=== PATIENT | male | born 1955 | race Native Hawaiian/Other Pacific Islander ===

== ENCOUNTER 2017-10-27 15:30 | Inpatient (IN) | payer OTHER, MEDICARE ==
[2017-10-27 15:42] VITALS: BMI 22.1
[2017-10-27] MEDS ORDERED: Enoxaparin 40 mg Syringe SC STA (16:33)
[2017-10-27] MEDS ORDERED: Enoxaparin 80 mg Syringe ONE (16:53)
[2017-10-27 17:16] LABS: BASO # 0.1 K/uL (0.0-0.2); BASO % 1.2 % (0.0-2.0); EOS # 1.1 K/uL (0.0-0.7); EOS % 12.4 % (0.0-4.0); HEMOGLOBIN 15.4 g/dL (12.0-18.0); LYMPH # 2.1 K/uL (1.0-4.3); LYMPH % 22.9 % (20.0-40.0); MEAN CELL VOLUME 82.1 fL (80.0-94.0); MEAN CORPUSCULAR HEMOGLOBIN 27.7 pg (27.0-31.0); MEAN CORPUSCULAR HGB CONC 33.7 g/dL (33.0-37.0); MEAN PLATELET VOLUME 8.8 fL (7.2-11.7); MONO # 0.8 K/uL (0.0-0.8); MONO % 8.4 % (0.0-10.0); NEUT % 55.1 % (50.0-75.0); NRBC % 0.1 % (0.0-2.0); RBC 5.57 Mil/uL (4.40-5.90); RED CELL DISTRIBUTION WIDTH 13.6 % (11.5-14.5)
[2017-10-27 17:31] LABS: ALBUMIN 3.8 g/dL (3.5-5.0); ALT/SGPT 15 U/L (21-72); AST/SGOT 28 U/L (17-59); BLOOD UREA NITROGEN 9 mg/dL (9-20); CALCIUM 9.6 mg/dl (8.6-10.4); GFR AFRICAN-AMERICAN > 60; GFR NON-AFRICAN AMERICAN > 60
[2017-10-27 17:40] LABS: INR 1.1; PROTHROMBIN TIME 12.9 SECONDS (9.7-12.2)
[2017-10-27 17:41] LABS: B-TYPE NATRIURETIC PEPTIDE 63.9 pg/mL (0-900)
--- NOTE | 2017-10-27 17:51 | C.PDOC ---
History Of Present Illness 62 y/o male presents to the ED, referred by Dr. Ramos Willingham for right lower leg swelling for the past week, suspicious for DVT. Denies recent travel or trauma. No history of DVT. Patient is ambulatory. Denies associated chest pain, SOB, dizziness, headache, or nausea. Time Seen by Provider: 10/27/17 16:29 Chief Complaint (Nursing): Lower Extremity Problem/Injury History Per: Patient History/Exam Limitations: no limitations Onset/Duration Of Symptoms: Days Current Symptoms Are (Timing): Still Present Past Medical History Reviewed: Historical Data, Nursing Documentation, Vital Signs Vital Signs: Last Vital Signs Temp 98.1 F 10/27/17 15:42 Pulse 75 10/27/17 18:22 Resp 16 10/27/17 18:22 BP 137/77 10/27/17 18:22 Pulse Ox 97 10/27/17 18:22 - Medical History PMH: CVA, Diabetes, HTN Surgical History: No Surg Hx Family History: States: No Known Family Hx - Social History Hx Tobacco Use: No Hx Alcohol Use: No Hx Substance Use: No - Immunization History Hx Tetanus Toxoid Vaccination: No Hx Influenza Vaccination: No Hx Pneumococcal Vaccination: No Review Of Systems Except As Marked, All Systems Reviewed And Found Negative. Constitutional: Negative for: Fever Cardiovascular: Negative for: Chest Pain Respiratory: Negative for: Shortness of Breath Musculoskeletal: Positive for: Other (R lower leg pain and swelling) Neurological: Negative for: Weakness, Numbness, Headache Physical Exam - Physical Exam Appears: Non-toxic, No Acute Distress Skin: Warm, Dry Head: Atraumatic, Normacephalic Eye(s): bilateral: Normal Inspection, PERRL, EOMI Neck: Normal ROM, Supple Chest: Symmetrical Cardiovascular: Rhythm Regular, No Murmur Respiratory: Normal Breath Sounds, No Rales, No Rhonchi, No Wheezing Gastrointestinal/Abdominal: Soft, No Tenderness, No Distention Extremity: Normal ROM, No Capillary Refill, Swelling (Edematous right leg below the knee), Other (Negative homans) Neurological/Psych: Oriented x3, Normal Speech ED Course And Treatment - Laboratory Results Result Diagrams: 10/27/17 17:12 10/27/17 17:12 Lab Interpretation: Abnormal (d-dimer 2000 H, trop/bnp neg.) ECG: Interpreted By Me ECG Rhythm: Sinus Rhythm ECG Interpretation: Normal Rate From EC O2 Sat by Pulse Oximetry: 98 (RA) Pulse Ox Interpretation: Normal - Radiology CXR: Interpreted by Me CXR Interpretation: Yes: No Acute Disease Progress Note: lovenox 70 mg SQ Reevaluation Time: 17:52 Reassessment Condition: Unchanged - Physician Consult Information Outcome Of Conversation: 1510, 1745 d/w raysa Greer to admit to reg Medicine floor. suspect DVT R leg, will start anticoag empirically on floor and pending vascular US in AM to verify DVT. LOW susp of compartment syndrome/ fx/cellulitis. Medical Decision Making Medical Decision Making: Impression: Right lower leg swelling, r/o DVT Initial Plan: Labs, EKG, CXR ordered and reviewed. Lovenox 70 mg administered SC. Disposition Doctor Will See Patient In The: Hospital Counseled Patient/Family Regarding: Studies Performed, Diagnosis - Disposition Disposition: HOSPITALIZED Disposition Time: 17:53 Condition: GOOD - Clinical Impression Clinical Impression: Deep venous thrombosis of lower extremity - Scribe Statement The provider has reviewed the documentation as recorded by the Scribe (Racquel Saucedo) Provider Attestation: All medical record entries made by the Scribe were at my direction and personally dictated by me. I have reviewed the chart and agree that the record accurately reflects my personal performance of the history, physical exam, medical decision making, and the department course for this patient. I have also personally directed, reviewed, and agree with the discharge instructions and disposition.
--- NOTE | 2017-10-27 18:24 | RAD ---
HISTORY: SOB COMPARISON: No prior. TECHNIQUE: Chest PA and lateral FINDINGS: LUNGS: Granulomatous calcifications in left lung apex. No pulmonary infiltrate. PLEURA: No significant pleural effusion identified. No pneumothorax apparent. CARDIOVASCULAR: Normal. OSSEOUS STRUCTURES: No significant abnormalities. VISUALIZED UPPER ABDOMEN: Normal. OTHER FINDINGS: None. IMPRESSION: No acute infiltrate. Old granulomatous disease.
[2017-10-27] MEDS: (Novolin R) Insulin Human Regular 100 units/ml vial SC SCH (21:15)
[2017-10-28] MEDS: (Novolin R) Insulin Human Regular 100 units/ml vial SC SCH ×4 (08:17→22:00)
[2017-10-28] MEDS: Metoprolol Succinate 100 mg XL Tab PO SCH (09:39)
[2017-10-28] MEDS ORDERED: JANUVIA 100 MG PO SCH (10:00)
[2017-10-28] MEDS ORDERED: Enoxaparin 40 mg Syringe SC SCH (10:00)
[2017-10-28] MEDS ORDERED: Enoxaparin 30 mg Syringe SC ONE (11:00)
--- NOTE | 2017-10-28 16:52 | CP.PCM.PN ---
Subjective - Date & Time of Evaluation Date of Evaluation: 10/28/17 Time of Evaluation: 16:51 - Subjective Subjective: edema down. Objective - Vital Signs/Intake and Output Vital Signs (last 24 hours): Temp Pulse Resp BP Pulse Ox 98.2 F 70 20 134/83 97 10/28/17 16:00 10/28/17 16:00 10/28/17 16:00 10/28/17 16:00 10/28/17 16:00 Intake and Output: 10/28/17 10/28/17 06:59 18:59 Intake Total 740 Output Total 200 Balance 540 - Medications Medications: Current Medications Aspirin (Aspirin Chewable) 81 mg PO DAILY [facility] Last Admin: 10/28/17 09:39 Dose: 81 mg Enoxaparin Sodium (Lovenox) 70 mg SC Q12 [facility] Glimepiride (Amaryl) 2 mg PO ACB [facility] Last Admin: 10/28/17 10:50 Dose: 2 mg Insulin Human Regular (Novolin R) 0 unit SC ACHS [facility] PRN Reason: Protocol Last Admin: 10/28/17 11:46 Dose: 3 unit Metformin HCl (Glucophage) 500 mg PO BIDCC [facility] Last Admin: 10/28/17 10:49 Dose: 500 mg Metoprolol Succinate (Toprol Xl) 100 mg PO DAILY [facility] Last Admin: 10/28/17 09:39 Dose: 100 mg Rosuvastatin Calcium (Crestor) 20 mg PO HS [facility] Last Admin: 10/27/17 21:40 Dose: 20 mg Sitagliptin Phosphate (Januvia) 100 mg PO DAILY [facility] Last Admin: 10/28/17 10:50 Dose: 100 mg - Labs Labs: 10/27/17 17:12 10/27/17 17:12 PT 12.9 SECONDS (9.7-12.2) H 10/27/17 17:12 INR 1.1 10/27/17 17:12 APTT 29 SECONDS (21-34) 10/27/17 17:12 - Constitutional Appears: No Acute Distress - Eye Exam Eye Exam: Normal appearance - ENT Exam ENT Exam: Normal Exam - Respiratory Exam Respiratory Exam: Clear to Ausculation Bilateral - Cardiovascular Exam Cardiovascular Exam: REGULAR RHYTHM - GI/Abdominal Exam GI & Abdominal Exam: Soft - Extremities Exam Extremities Exam: Pedal Edema - Neurological Exam Neurological Exam: Alert, Oriented x3 Assessment and Plan - Assessment and Plan (Free Text) Assessment: dvt. lovenox 70 mg bid.add xaralto from am.
[2017-10-28] MEDS: Enoxaparin 80 mg Syringe SC SCH (21:46)
[2017-10-29] MEDS: (Novolin R) Insulin Human Regular 100 units/ml vial SC SCH ×4 (07:38→22:00)
[2017-10-29] MEDS: Metoprolol Succinate 100 mg XL Tab PO SCH (09:40)
[2017-10-29] MEDS: Enoxaparin 80 mg Syringe SC SCH ×2 (09:41→21:48)
[2017-10-29] MEDS ORDERED: Enoxaparin 80 mg Syringe SC SCH (10:00)
--- NOTE | 2017-10-29 10:00 | VASCLAB ---
PROCEDURE: Lower Extremity Venous Duplex Exam. HISTORY: Swollen lower extremity PRIORS: None. TECHNIQUE: Bilateral common femoral, femoral, popliteal and posterior tibial, peroneal and great saphenous veins were evaluated. Flow was assessed with color Doppler, compressibility, assessment of phasic flow and augmentation response. Report prepared by CHRISTINA Ulloa, RVT FINDINGS: RIGHT: 1. Common Femoral Vein: 1.1. Compressibility - Partial: Thrombus - Acute : Flow - Reduced : Augmentation -Reduced: Reflux - None. 2. Femoral Vein: 2.1. Compressibility - Partial: Thrombus - Acute : Flow - Absent : Augmentation -None: Reflux - None. 3. Popliteal Vein: 3.1. Compressibility - Partial: Thrombus - Acute : Flow - Absent : Augmentation -None: Reflux - None. 4. Posterior Tibial Vein: 4.1. Compressibility - Partial: Thrombus - Acute: Flow - Absent : Augmentation -None: Reflux - None. 5. Peroneal Vein: 5.1. Compressibility - Partial: Thrombus - Acute: Flow - Reduced : Augmentation -Reduced: Reflux - None. 6. Great Saphenous Vein: 6.1. Compressibility - Fully compressible: Thrombus - None: Flow - Phasic: Augmentation - Normal: Reflux - None. LEFT: 1. Common Femoral Vein: 1.1. Compressibility - Fully compressible: Thrombus - None: Flow - Phasic: Augmentation -Normal: Reflux - None. 2. Femoral Vein: 2.1. Compressibility - Fully compressible: Thrombus - None: Flow - Phasic: Augmentation -Normal: Reflux - None. 3. Popliteal Vein: 3.1. Compressibility - Fully compressible: Thrombus - None : Flow - Phasic: Augmentation -Normal: Reflux - None. 4. Posterior Tibial Vein: 4.1. Compressibility - Fully compressible: Thrombus - None: Flow - Phasic: Augmentation -Normal: Reflux - None. 5. Peroneal Vein: 5.1. Compressibility - Fully compressible: Thrombus - None: Flow - Phasic: Augmentation -Normal: Reflux - None. 6. Great Saphenous Vein: 6.1. Compressibility - Fully compressible: Thrombus - None: Flow - Phasic: Augmentation - Normal: Reflux - None. OTHER FINDINGS: JULIO CESAR Gaines notified about the findings. IMPRESSION: Right: Acute thrombosis of the right common femoral, femoral, popliteal, posterior tibial and peroneal veins with severe reduction of the venous return. Left: No evidence of deep or superficial vein thrombosis of the left lower extremity. Normal valve function noted of the left side.
[2017-10-29] MEDS ORDERED: Enoxaparin 30 mg Syringe SC ONE (10:30)
--- NOTE | 2017-10-29 21:04 | CP.PCM.PN ---
Subjective - Date & Time of Evaluation Date of Evaluation: 10/29/17 Time of Evaluation: 21:03 - Subjective Subjective: dvt.on lovenox.better. Objective - Vital Signs/Intake and Output Vital Signs (last 24 hours): Temp Pulse Resp BP Pulse Ox 98.3 F 76 20 126/75 95 10/29/17 16:00 10/29/17 16:00 10/29/17 16:00 10/29/17 16:00 10/29/17 16:00 Intake and Output: 10/29/17 10/30/17 18:59 06:59 Intake Total 500 Balance 500 - Medications Medications: Current Medications Aspirin (Aspirin Chewable) 81 mg PO DAILY [facility] Last Admin: 10/29/17 09:40 Dose: 81 mg Enoxaparin Sodium (Lovenox) 70 mg SC Q12 [facility] Last Admin: 10/29/17 09:41 Dose: 70 mg Glimepiride (Amaryl) 2 mg PO ACB [facility] Last Admin: 10/29/17 07:46 Dose: 2 mg Insulin Human Regular (Novolin R) 0 unit SC [facility] PRN Reason: Protocol Last Admin: 10/29/17 17:02 Dose: Not Given Metformin HCl (Glucophage) 500 mg PO BIDCC [facility] Last Admin: 10/29/17 17:43 Dose: 500 mg Metoprolol Succinate (Toprol Xl) 100 mg PO DAILY [facility] Last Admin: 10/29/17 09:40 Dose: 100 mg Rosuvastatin Calcium (Crestor) 20 mg PO HS [facility] Last Admin: 10/28/17 21:45 Dose: 20 mg Sitagliptin Phosphate (Januvia) 100 mg PO DAILY [facility] Last Admin: 10/29/17 09:40 Dose: 100 mg - Labs Labs: 10/27/17 17:12 10/27/17 17:12 PT 12.9 SECONDS (9.7-12.2) H 10/27/17 17:12 INR 1.1 10/27/17 17:12 APTT 29 SECONDS (21-34) 10/27/17 17:12 - Constitutional Appears: No Acute Distress - Head Exam Head Exam: NORMOCEPHALIC - Eye Exam Eye Exam: Normal appearance - Respiratory Exam Respiratory Exam: Clear to Ausculation Bilateral - Cardiovascular Exam Cardiovascular Exam: REGULAR RHYTHM - GI/Abdominal Exam GI & Abdominal Exam: Soft - Extremities Exam Extremities Exam: Pedal Edema - Neurological Exam Neurological Exam: Alert, Oriented x3 Assessment and Plan - Assessment and Plan (Free Text) Assessment: dvt.will start xarelto n am.
[2017-10-30] MEDS: (Novolin R) Insulin Human Regular 100 units/ml vial SC SCH ×4 (08:10→23:37)
--- NOTE | 2017-10-30 08:22 | HP ---
HISTORY OF PRESENT ILLNESS: A 62-year-old gentleman who was brought in with a history of pain and swelling of the right leg, three days prior to admission. No fall, no trauma. He was seen in the office, was sent to [place]. REVIEW OF SYSTEMS: CONSTITUTIONAL: No generalized weakness. No fever. No chills. No trauma. No visual disturbances. No sore throat. NECK: No swelling. RESPIRATORY: Negative for cough or hemoptysis. CARDIAC: Denies any chest pain. History of hypertension, swelling of the right leg. GI: Negative for hematemesis or melena. The patient does have a history of peptic ulcer disease but was not in 2008. NEUROLOGY: History of mild CVA in 2009 with a good recovery. MUSCULOSKELETAL: Pain and swelling of the right leg. : Negative for frequency or hematuria. PSYCHIATRIC: Negative for depression. NEUROLOGIC: As above. CARDIAC HISTORY: History of CAD. Past cardiac history: History of PTCA and stenting in 2006 to LAD, given normal LV systolic function on previous echo about two years ago. Mild pulmonary hypertension. PAST MEDICAL HISTORY: History of CVA in 05/2006, admitted to [facility]. History of peptic ulcer disease in 2008. PTCA of the LAD in 2006. Negative colonoscopy in 2006. PERSONAL HISTORY: He is . Does not smoke and does not drink. Walks 3 to 4 times a week, yoga. FAMILY HISTORY: One brother and mother has a diabetes. MEDICATIONS: At home include aspirin 81 mg, glimepiride 2 mg, metformin 750 mg, Januvia 100 mg, Lipitor 40, Plavix 75, Prilosec 20, Vasotec 10 mg one a day. ALLERGIES: DENIED. PHYSICAL EXAMINATION: GENERAL: Shows middle-aged gentleman, in no distress. VITAL SIGNS: Blood pressure is 130/70, heart rate of 74 and regular, respiratory rate of 14. He is 5 feet 8 inches, weighs 168 pounds. HEENT: Head is normocephalic. Eyes: No pallor. No icterus. NECK: Supple. LUNGS: Clear to auscultation bilaterally. HEART: PMI is normal. S1 and S2 normal. No gallops. Soft mid systolic murmur in mitral area. ABDOMEN: Soft, nontender. EXTREMITIES: No cyanosis or clubbing. Edema is noted, nonpitting from right knee down. Dorsalis pedis is 1+. Tenderness is noted in the right calf area. Homans sign is positive. NEUROLOGICAL: No focal sign. LABORATORY DATA: Pending. ASSESSMENT: This is a 62-year-old gentleman who looks like he has a strong possibility of deep vein thrombosis. PLAN: Full dose of Lovenox. Hold off with the Plavix. Continue with the baby aspirin and Accu-Cheks. Vascular consultation. Ramos Willingham MD
[2017-10-30] MEDS ORDERED: Enoxaparin 80 mg Syringe SC ONE ×2 (09:00→10:00)
[2017-10-30] MEDS: Metoprolol Succinate 100 mg XL Tab PO SCH (09:42)
--- NOTE | 2017-10-30 10:41 | CP.PCM.CON ---
History of Present Illness - History of Present Illness History of Present Illness: PGY-1 surgery consult note for Dr Waters. Patient is a 62 year old male with a PMHx of CVA, CAD, Diabetes, HTN, HLD who was referred to [facility] by his PMD for right leg swelling. Patient was found to have an acute thrombosis in right lower extremity, thus surgery was consulted. Patient stated his pain began 1 week ago when he traveled to [place] with his by car, a 2 hour trip. Since then he's had right calf pain upon ambulation. He also had some swelling. He then went to see his PMD Dr Willingham, 3 days ago who referred him to [facility]. He states he's never had a clot before. He denies fatigue, weight loss, being bed bound, recent hospitalizations, inactivity. PMHx: CVA 2007, CAD, Diabetes, HTN, HLD PSHx: Cardiac cath with PCI stent placement 2009 at 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 absent: Chest Pain, Dyspnea - Respiratory Respiratory: absent: Cough, Wheezing - Gastrointestinal Gastrointestinal: absent: Abdominal Pain, Constipation, Diarrhea - Genitourinary Genitourinary: absent: Dysuria - Musculoskeletal Musculoskeletal: absent: Arthralgias - Integumentary Integumentary: absent: Bleeding Lesions - Neurological Neurological: absent: Confusion Past Patient History - Past Social History Smoking Status: Never Smoked - CARDIAC Hx Hypertension: Yes - NEUROLOGICAL HX Cerebrovascular Accident: Yes (No residual deficits) - ENDOCRINE/METABOLIC Hx Diabetes Mellitus Type 2: Yes - MUSCULOSKELETAL/RHEUMATOLOGICAL Hx Falls: No - PSYCHIATRIC Hx Substance Use: No - SURGICAL HISTORY Hx Surgeries: No - ANESTHESIA Hx Anesthesia: Yes Meds Allergies/Adverse Reactions: Allergies Allergy/AdvReac Type Severity Reaction Status Date / Time No Known Allergies Allergy Verified 10/27/17 15:42 - Medications Medications: Current Medications Aspirin (Aspirin Chewable) 81 mg PO DAILY [facility] Last Admin: 10/30/17 09:42 Dose: 81 mg Glimepiride (Amaryl) 2 mg PO ACB [facility] Last Admin: 10/30/17 08:11 Dose: 2 mg Insulin Human Regular (Novolin R) 0 unit SC ACHS [facility] PRN Reason: Protocol Last Admin: 10/30/17 08:10 Dose: Not Given Metformin HCl (Glucophage) 500 mg PO BIDCC [facility] Last Admin: 10/30/17 08:11 Dose: 500 mg Metoprolol Succinate (Toprol Xl) 100 mg PO DAILY [facility] Last Admin: 10/30/17 09:42 Dose: 100 mg Rivaroxaban (Xarelto) 15 mg PO BID@0800,2000 [facility] Rosuvastatin Calcium (Crestor) 20 mg PO HS [facility] Last Admin: 10/29/17 21:48 Dose: 20 mg Sitagliptin Phosphate (Januvia) 100 mg PO DAILY [facility] Last Admin: 10/30/17 09:42 Dose: 100 mg Physical Exam - Constitutional Appears: Well, No Acute Distress - Head Exam Head Exam: ATRAUMATIC, NORMAL INSPECTION - Eye Exam Eye Exam: EOMI Pupil Exam: PERRL - ENT Exam ENT Exam: Mucous Membranes Moist - Neck Exam Neck exam: Positive for: Normal Inspection. Negative for: Lymphadenopathy, Tenderness - Respiratory Exam Respiratory Exam: Clear to Auscultation Bilateral, NORMAL BREATHING PATTERN. absent: Rales, Rhonchi, Wheezes - Cardiovascular Exam Cardiovascular Exam: REGULAR RHYTHM, +S1, +S2. absent: Tachycardia, JVD - GI/Abdominal Exam GI & Abdominal Exam: Normal Bowel Sounds, Soft. absent: Tenderness - Extremities Exam Extremities exam: Positive for: normal capillary refill, normal inspection, pedal pulses present. Negative for: calf tenderness, tenderness Additional comments: right leg with very mild swelling compared to left leg no tenderness to palpation no skin changes noted PT and DP pulses 2+ - Neurological Exam Neurological exam: Alert, CN II-XII Intact, Oriented x3 - Skin Skin Exam: Intact, Normal Color, Warm Results - Vital Signs Recent Vital Signs: Last Vital Signs Temp 98.6 F 10/30/17 07:52 Pulse 65 10/30/17 07:52 Resp 20 10/30/17 07:52 BP 152/76 H 10/30/17 07:52 Pulse Ox 100 10/30/17 07:52 - Labs Result Diagrams: 10/27/17 17:12 10/27/17 17:12 Labs: Laboratory Results - last 24 hr 10/29/17 10/29/17 10/29/17 11:07 16:55 21:19 POC Glucose (mg/dL) 215 H 138 H 115 H 10/30/17 06:57 POC Glucose (mg/dL) 112 H Assessment & Plan (1) Deep venous thrombosis of lower extremity Assessment and Plan: -Unprovoked DVT of RIGHT lower extremity -Will discuss findings with Dr Waters and determine plan: angioplasty vs IVC filter vs ? -Medical management as per primary, Dr Willingham Imaging: Venous duplex scan 10/29/17: acute thrombosis of right common femoral, femoral, popliteal, posterior tibial and peroneal veins with severe reduction of venous return Meds: Xarelto 15mg PO BID Status: Acute Priority: High
--- NOTE | 2017-10-30 13:54 | CP.PCM.PN ---
Subjective - Date & Time of Evaluation Date of Evaluation: 10/30/17 Time of Evaluation: 13:52 - Subjective Subjective: swelling better,but pain on ambulation +. Objective - Vital Signs/Intake and Output Vital Signs (last 24 hours): Temp Pulse Resp BP Pulse Ox 98.6 F 65 20 152/76 H 100 10/30/17 07:52 10/30/17 07:52 10/30/17 07:52 10/30/17 07:52 10/30/17 07:52 Intake and Output: 10/30/17 10/30/17 06:59 18:59 Intake Total 300 0 Output Total 950 Balance -650 0 - Medications Medications: Current Medications Aspirin (Aspirin Chewable) 81 mg PO DAILY [facility] Last Admin: 10/30/17 09:42 Dose: 81 mg Glimepiride (Amaryl) 2 mg PO ACB [facility] Last Admin: 10/30/17 08:11 Dose: 2 mg Insulin Human Regular (Novolin R) 0 unit SC ACHS [facility] PRN Reason: Protocol Last Admin: 10/30/17 12:23 Dose: 1 unit Metformin HCl (Glucophage) 500 mg PO BIDCC [facility] Last Admin: 10/30/17 08:11 Dose: 500 mg Metoprolol Succinate (Toprol Xl) 100 mg PO DAILY [facility] Last Admin: 10/30/17 09:42 Dose: 100 mg Rivaroxaban (Xarelto) 15 mg PO BID@0800,2000 [facility] Rosuvastatin Calcium (Crestor) 20 mg PO HS [facility] Last Admin: 10/29/17 21:48 Dose: 20 mg Sitagliptin Phosphate (Januvia) 100 mg PO DAILY [facility] Last Admin: 10/30/17 09:42 Dose: 100 mg - Labs Labs: 10/27/17 17:12 10/27/17 17:12 PT 12.9 SECONDS (9.7-12.2) H 10/27/17 17:12 INR 1.1 10/27/17 17:12 APTT 29 SECONDS (21-34) 10/27/17 17:12 - Constitutional Appears: No Acute Distress - Head Exam Head Exam: NORMOCEPHALIC - ENT Exam ENT Exam: Normal Exam - Respiratory Exam Respiratory Exam: Clear to Ausculation Bilateral - Cardiovascular Exam Cardiovascular Exam: REGULAR RHYTHM - GI/Abdominal Exam GI & Abdominal Exam: Soft - Extremities Exam Extremities Exam: Pedal Edema - Neurological Exam Neurological Exam: Alert, Oriented x3 Assessment and Plan - Assessment and Plan (Free Text) Assessment: extensive dvt. vascular consult.shelia leo
[2017-10-30] MEDS ORDERED: Iodixanol 320 mg/ml 150 ml Bottle IV ONE (17:23)
[2017-10-30] MEDS ORDERED: Iodixanol 320 MG/ML 100 ML BOTTLE IV ONE (17:28)
--- NOTE | 2017-10-30 18:43 | CT ---
PROCEDURE: CT abdomen and pelvis HISTORY: Evaluate for IVC/iliac vein thrombosis COMPARISON: 10/28/2017 bilateral lower extremity duplex venous sonography. Summary of findings on the comparison examination: Right lower extremity: Acute thrombosis of the right common femoral, femoral, popliteal, posterior tibial and peroneal veins with severe reduction of the venous return. TECHNIQUE: 2.5 mm axial acquisition and display. Coronal and sagittal reconstructions. Dose report (mGy-cm): 1779.75 FINDINGS: Thrombus identified in the right common femoral vein. No visible IVC thrombosis. Anatomic survey: Hepatic steatosis. No focal masses. No intrahepatic bile duct dilatation or perihepatic ascites. No evidence of portal vein thrombosis. Unremarkable spleen, stomach with the exception of a small hiatal hernia. No adrenal or renal abnormalities detected. Unremarkable pancreas. Constipation without fecal impaction or obstruction. Urinary bladder: Unremarkable. Reproductive: Normal size prostate. IMPRESSION: Documentation of right common femoral vein thrombosis. No evidence of more proximal thrombosis or other pathologic process. External iliacs, internal iliacs, common iliacs and IVC are within normal limits. Limitations of the current examination: Suboptimal opacification of the IVC, there is no evidence of thrombosis within pelvic or retroperitoneal venous structures.
[2017-10-31 06:25] LABS: BASO # 0.1 K/uL (0.0-0.2); BASO % 1.4 % (0.0-2.0); EOS % 10.3 % (0.0-4.0); HEMOGLOBIN 15.5 g/dL (12.0-18.0); LYMPH # 2.2 K/uL (1.0-4.3); LYMPH % 24.2 % (20.0-40.0); MEAN CELL VOLUME 82.1 fL (80.0-94.0); MEAN CORPUSCULAR HEMOGLOBIN 28.1 pg (27.0-31.0); MEAN CORPUSCULAR HGB CONC 34.2 g/dL (33.0-37.0); MEAN PLATELET VOLUME 8.5 fL (7.2-11.7); MONO # 0.7 K/uL (0.0-0.8); MONO % 8.1 % (0.0-10.0); NEUT # 5.2 K/uL (1.8-7.0); RBC 5.53 Mil/uL (4.40-5.90); RED CELL DISTRIBUTION WIDTH 13.3 % (11.5-14.5); WHITE BLOOD COUNT 9.3 K/uL (4.8-10.8)
[2017-10-31 06:31] LABS: ALB/GLOB RATIO 1.1 (1.0-2.1); ALBUMIN 3.6 g/dL (3.5-5.0); ALT/SGPT 27 U/L (21-72); AST/SGOT 33 U/L (17-59); BLOOD UREA NITROGEN 10 mg/dL (9-20); GFR AFRICAN-AMERICAN > 60; GFR NON-AFRICAN AMERICAN > 60; HDL CHOLESTEROL 29 mg/dL (30-70)
[2017-10-31 06:41] LABS: LDL CHOLESTEROL 103 mg/dL (0-129)
[2017-10-31] MEDS: (Novolin R) Insulin Human Regular 100 units/ml vial SC SCH ×4 (08:09→22:08)
--- NOTE | 2017-10-31 08:12 | CP.PCM.PN ---
Subjective - Date & Time of Evaluation Date of Evaluation: 10/31/17 Time of Evaluation: 08:09 - Subjective Subjective: PGY-1 surgery progress note for Dr Waters. No acute events noted overnight. Patient did not offer any complaints. He said he was not in any pain and inquired as to when he could go home. We told him we need to review the CTA results first. He denied f/c, n/v, d/c, bleeding. Objective - Vital Signs/Intake and Output Vital Signs (last 24 hours): Temp Pulse Resp BP Pulse Ox 98.4 F 71 20 118/75 95 10/31/17 00:00 10/31/17 00:00 10/31/17 00:00 10/31/17 00:00 10/31/17 00:00 Intake and Output: 10/31/17 10/31/17 06:59 18:59 Intake Total 300 Output Total 700 Balance -400 - Medications Medications: Current Medications Aspirin (Aspirin Chewable) 81 mg PO DAILY [facility] Last Admin: 10/30/17 09:42 Dose: 81 mg Glimepiride (Amaryl) 2 mg PO ACB [facility] Last Admin: 10/30/17 08:11 Dose: 2 mg Insulin Human Regular (Novolin R) 0 unit SC ACHS [facility] PRN Reason: Protocol Last Admin: 10/30/17 23:37 Dose: Not Given Metformin HCl (Glucophage) 500 mg PO BIDCC [facility] Last Admin: 10/30/17 17:29 Dose: 500 mg Metoprolol Succinate (Toprol Xl) 100 mg PO DAILY [facility] Last Admin: 10/30/17 09:42 Dose: 100 mg Rivaroxaban (Xarelto) 15 mg PO BID@0800,2000 [facility] Last Admin: 10/30/17 20:01 Dose: 15 mg Rosuvastatin Calcium (Crestor) 20 mg PO HS [facility] Last Admin: 10/30/17 21:22 Dose: 20 mg Sitagliptin Phosphate (Januvia) 100 mg PO DAILY [facility] Last Admin: 10/30/17 09:42 Dose: 100 mg - Labs Labs: 10/31/17 06:09 10/31/17 06:09 PT 12.9 SECONDS (9.7-12.2) H 10/27/17 17:12 INR 1.1 10/27/17 17:12 APTT 29 SECONDS (21-34) 10/27/17 17:12 - Additional Findings Additional findings: - Constitutional Appears: Well, No Acute Distress - Head Exam Head Exam: ATRAUMATIC, NORMAL INSPECTION - Eye Exam Eye Exam: EOMI Pupil Exam: PERRL - ENT Exam ENT Exam: Mucous Membranes Moist - Neck Exam Neck exam: Positive for: Normal Inspection. Negative for: Lymphadenopathy, Tenderness - Respiratory Exam Respiratory Exam: Clear to Auscultation Bilateral, NORMAL BREATHING PATTERN. absent: Rales, Rhonchi, Wheezes - Cardiovascular Exam Cardiovascular Exam: REGULAR RHYTHM, +S1, +S2. absent: Tachycardia, JVD - GI/Abdominal Exam GI & Abdominal Exam: Normal Bowel Sounds, Soft. absent: Tenderness - Extremities Exam Extremities exam: Positive for: normal capillary refill, normal inspection, pedal pulses present. Negative for: calf tenderness, tenderness Additional comments: right leg with very mild swelling compared to left leg no tenderness to palpation no skin changes noted PT and DP pulses 2+ - Neurological Exam Neurological exam: Alert, CN II-XII Intact, Oriented x3 - Skin Skin Exam: Intact, Normal Color, Warm Assessment and Plan (1) Deep venous thrombosis of lower extremity Status: Acute - Assessment and Plan (Free Text) Assessment: (1) Deep venous thrombosis of lower extremity Assessment and Plan: -Unprovoked DVT of RIGHT lower extremity -CTA w/ runoff completed -Will discuss CTA findings with Dr Waters and determine plan: angioplasty vs IVC filter vs ? -Medical management as per primary, Dr Willingham Imaging: Venous duplex scan 10/29/17: * acute thrombosis of right common femoral, femoral, popliteal, posterior tibial and peroneal veins with severe reduction of venous return CTA w/ runoff: * Documentation of right common femoral vein thrombosis. No evidence of more proximal thrombosis or other pathologic process. External iliacs, internal iliacs, common iliacs and IVC are within normal limits. Limitations of the current examination: Suboptimal opacification of the IVC, there is no evidence of thrombosis within pelvic or retroperitoneal venous structures. Meds: Xarelto 15mg PO BID Status: Acute Priority: High
[2017-10-31] MEDS: Metoprolol Succinate 100 mg XL Tab PO SCH (09:23)
--- NOTE | 2017-10-31 12:20 | CP.PCM.PN ---
Subjective - Date & Time of Evaluation Date of Evaluation: 10/31/17 Time of Evaluation: 12:19 - Subjective Subjective: seen by vascular.for filter in am. Objective - Vital Signs/Intake and Output Vital Signs (last 24 hours): Temp Pulse Resp BP Pulse Ox 98.8 F 74 20 126/76 96 10/31/17 07:00 10/31/17 07:00 10/31/17 07:00 10/31/17 07:00 10/31/17 07:00 Intake and Output: 10/31/17 10/31/17 06:59 18:59 Intake Total 300 Output Total 700 Balance -400 - Medications Medications: Current Medications Aspirin (Aspirin Chewable) 81 mg PO DAILY [facility] Last Admin: 10/31/17 09:23 Dose: 81 mg Glimepiride (Amaryl) 2 mg PO ACB [facility] Last Admin: 10/31/17 08:30 Dose: 2 mg Insulin Human Regular (Novolin R) 0 unit SC ACHS [facility] PRN Reason: Protocol Last Admin: 10/31/17 12:15 Dose: Not Given Metformin HCl (Glucophage) 500 mg PO BIDCC [facility] Last Admin: 10/31/17 08:32 Dose: 500 mg Metoprolol Succinate (Toprol Xl) 100 mg PO DAILY [facility] Last Admin: 10/31/17 09:23 Dose: 100 mg Rivaroxaban (Xarelto) 15 mg PO BID@0800,2000 [facility] Last Admin: 10/31/17 08:32 Dose: 15 mg Rosuvastatin Calcium (Crestor) 20 mg PO HS [facility] Last Admin: 10/30/17 21:22 Dose: 20 mg Sitagliptin Phosphate (Januvia) 100 mg PO DAILY [facility] Last Admin: 10/31/17 09:22 Dose: 100 mg - Labs Labs: 10/31/17 06:09 10/31/17 06:09 PT 12.9 SECONDS (9.7-12.2) H 10/27/17 17:12 INR 1.1 10/27/17 17:12 APTT 29 SECONDS (21-34) 10/27/17 17:12 - Constitutional Appears: No Acute Distress - Head Exam Head Exam: NORMOCEPHALIC - ENT Exam ENT Exam: Normal Exam - Respiratory Exam Respiratory Exam: Clear to Ausculation Bilateral - Cardiovascular Exam Cardiovascular Exam: REGULAR RHYTHM - GI/Abdominal Exam GI & Abdominal Exam: Soft - Extremities Exam Extremities Exam: Pedal Edema - Neurological Exam Neurological Exam: Alert, Oriented x3 Assessment and Plan - Assessment and Plan (Free Text) Plan: extensive dvt.for ivc filter in am.
--- NOTE | 2017-10-31 22:57 | CARD ---
APPROVED REPORT EKG Measurement Heart [id number] CT [id number] <Conclusion> Normal sinus rhythm Possible Anterior infarct, age undetermined Nonspecific T wave abnormality Abnormal ECG
[2017-11-01] MEDS: (Novolin R) Insulin Human Regular 100 units/ml vial SC SCH ×4 (07:21→21:57)
[2017-11-01 07:33] LABS: BASO # 0.1 K/uL (0.0-0.2); BASO % 1.4 % (0.0-2.0); EOS # 1.2 K/uL (0.0-0.7); EOS % 12.2 % (0.0-4.0); HEMOGLOBIN 15.5 g/dL (12.0-18.0); LYMPH # 2.4 K/uL (1.0-4.3); LYMPH % 25.4 % (20.0-40.0); MEAN CELL VOLUME 81.3 fL (80.0-94.0); MEAN CORPUSCULAR HEMOGLOBIN 27.9 pg (27.0-31.0); MEAN CORPUSCULAR HGB CONC 34.4 g/dL (33.0-37.0); MEAN PLATELET VOLUME 8.6 fL (7.2-11.7); MONO # 0.7 K/uL (0.0-0.8); NEUT # 5.2 K/uL (1.8-7.0); NRBC % 0.1 % (0.0-2.0); RBC 5.55 Mil/uL (4.40-5.90); RED CELL DISTRIBUTION WIDTH 13.5 % (11.5-14.5); WHITE BLOOD COUNT 9.6 K/uL (4.8-10.8)
[2017-11-01 07:39] LABS: INR 1.3; PROTHROMBIN TIME 14.3 SECONDS (9.7-12.2)
[2017-11-01 07:52] LABS: BLOOD UREA NITROGEN 12 mg/dL (9-20); GFR AFRICAN-AMERICAN > 60; GFR NON-AFRICAN AMERICAN > 60
[2017-11-01] MEDS: Metoprolol Succinate 100 mg XL Tab PO SCH (09:44)
--- NOTE | 2017-11-01 12:36 | CP.PCM.PN ---
Subjective - Date & Time of Evaluation Date of Evaluation: 11/01/17 Time of Evaluation: 12:35 - Subjective Subjective: in or for filter.vitals,labs noted. Objective - Vital Signs/Intake and Output Vital Signs (last 24 hours): Temp Pulse Resp BP Pulse Ox 98.8 F 68 20 107/70 94 L 11/01/17 07:54 11/01/17 07:54 11/01/17 07:54 11/01/17 07:54 11/01/17 07:54 Intake and Output: 11/01/17 11/01/17 06:59 18:59 Intake Total 0 Balance 0 - Medications Medications: Current Medications Aspirin (Aspirin Chewable) 81 mg PO DAILY [facility] Last Admin: 11/01/17 09:45 Dose: Not Given Glimepiride (Amaryl) 2 mg PO ACB [facility] Last Admin: 11/01/17 07:21 Dose: Not Given Insulin Human Regular (Novolin R) 0 unit SC ACHS [facility] PRN Reason: Protocol Last Admin: 11/01/17 11:16 Dose: Not Given Metformin HCl (Glucophage) 500 mg PO BIDCC [facility] Last Admin: 11/01/17 07:21 Dose: Not Given Metoprolol Succinate (Toprol Xl) 100 mg PO DAILY [facility] Last Admin: 11/01/17 09:44 Dose: 100 mg Rivaroxaban (Xarelto) 15 mg PO BID@0800,2000 [facility] Last Admin: 10/31/17 08:32 Dose: 15 mg Rosuvastatin Calcium (Crestor) 20 mg PO HS [facility] Last Admin: 10/31/17 22:10 Dose: 20 mg Sitagliptin Phosphate (Januvia) 100 mg PO DAILY [facility] Last Admin: 11/01/17 09:45 Dose: Not Given - Labs Labs: 11/01/17 07:27 11/01/17 07:27 PT 14.3 SECONDS (9.7-12.2) H 11/01/17 07:27 INR 1.3 11/01/17 07:27 APTT 37 SECONDS (21-34) H 11/01/17 07:27 - Cardiovascular Exam Cardiovascular Exam: REGULAR RHYTHM Assessment and Plan - Assessment and Plan (Free Text) Plan: will follow after or.labs,vitals all noted.
[2017-11-01] MEDS ORDERED: Iodixanol 320 MG/ML 100 ML BOTTLE IV ONE (12:45)
[2017-11-01] MEDS ORDERED: Midazolam 2 MG/2 ML VIAL ONE ×2 (13:26→14:36)
--- NOTE | 2017-11-01 15:14 | PCM.SURG1 ---
Surgeon's Initial Post Op Note - Surgeon's Notes Surgeon: makeda [employer] Aide: 0 Type of Anesthesia: IV Sedation Anesthesia Administered By: chidi Pre-Operative Diagnosis: DVT RIGHT LEG Operative Findings: EXTENSIVE CLOT IN FEMORAL AND CFV. SUCCESSFUL LYSIS WITH ANGIOJEY. SELECT ( REMOVABLE ) IVCF PLACED VIA LEFT POPLITEAL. COMPLETION FILMS AVAILABLE Post-Operative Diagnosis: SAME Operation Performed: SELECT IVCF VIA LEFT POPLITEAL VEIN. VENOGRAM AND MECHANICAL THROMBOLYSIS RIGHT FEMORAL VEIN VIA POPLITEAL ACCESS Specimen/Specimens Removed: 0 Estimated Blood Loss: EBL {In ML}: 50 Blood Products Given: N/A Drains Used: No Drains Post-Op Condition: Good Date of Surgery/Procedure: 11/01/17 Time of Surgery/Procedure: 15:19
[2017-11-01] MEDS ORDERED: Heparin25000 units/250ml 1/2NS 25,000 UNITS/250 ML BAG IV PRN (15:24)
[2017-11-01] MEDS: Dextrose 5%/0.45% NS 1,000 ML IV SCH (15:45)
--- NOTE | 2017-11-01 18:08 | CP.PCM.CON ---
<Brenden Stapleton - Last Filed: 11/01/17 18:34> History of Present Illness - History of Present Illness History of Present Illness: Critical Care Consult Note for Dr. Marinelli This is a 62 sherri old male with PMHx CVA, CAD, DM, HTN, HLD who presented to the hospital for right leg swelling. Patient diagnosed with acute thrombosis of the right lower extremity and underwent mechanical thrombolysis of the right femoral vein along with placement of an IVC filter. Patient is being transferred to the ICU for post op monitoring. PMHx: CVA in 2007, CAD, DM, HTN, HLD PSHx: Cardiac cath with PCI stent placement 2009 at [facility], mechanical thrombolysis of the right femoral vein along with placement of an IVC filter on 11/01/17 Allergies: NKA SocialHx: Denies tobacco, drugs. 2 drinks of lyle per day for past 30 years. Review of Systems - Constitutional Constitutional: absent: Chills, Fever - EENT Eyes: absent: Change in Vision Ears: absent: Decreased Hearing Nose/Mouth/Throat: absent: Nasal Congestion - Cardiovascular Cardiovascular: absent: Chest Pain - Respiratory Respiratory: absent: Dyspnea - Gastrointestinal Gastrointestinal: absent: Abdominal Pain, Nausea, Vomiting - Genitourinary Genitourinary: absent: Dysuria - Musculoskeletal Musculoskeletal: absent: Other (leg pain) - Integumentary Integumentary: absent: Rash - Neurological Neurological: absent: Weakness - Psychiatric Psychiatric: absent: Anxiety - Endocrine Endocrine: absent: Palpitations Past Patient History - Past Social History Smoking Status: Never Smoked - CARDIAC Hx Hypertension: Yes - NEUROLOGICAL HX Cerebrovascular Accident: Yes (No residual deficits) - ENDOCRINE/METABOLIC Hx Diabetes Mellitus Type 2: Yes - MUSCULOSKELETAL/RHEUMATOLOGICAL Hx Falls: No - PSYCHIATRIC Hx Substance Use: No - SURGICAL HISTORY Hx Surgeries: No - ANESTHESIA Hx Anesthesia: Yes Meds Allergies/Adverse Reactions: Allergies Allergy/AdvReac Type Severity Reaction Status Date / Time No Known Allergies Allergy Verified 10/27/17 15:42 - Medications Medications: Current Medications Aspirin (Aspirin Chewable) 81 mg PO DAILY [facility] Last Admin: 11/01/17 09:45 Dose: Not Given Glimepiride (Amaryl) 2 mg PO ACB [facility] Last Admin: 11/01/17 07:21 Dose: Not Given Dextrose/Sodium Chloride (Dextrose 5%/0.45% Ns 1000 Ml) 1,000 mls @ 100 mls/hr IV .Q10H [facility] Heparin Sodium/Sodium Chloride (Heparin 15258 Units/250ml 1/2 Normal Saline) 25 ,000 units in 250 mls @ 12.247 mls/hr IV .[id number] PRN; Protocol; 18 UNITS/KG/HR PRN Reason: ADJUST RATE PER PROTOCOL Insulin Human Regular (Novolin R) 0 unit SC ACHS [facility] PRN Reason: Protocol Last Admin: 11/01/17 17:30 Dose: Not Given [facility] Admin: 11/01/17 07:21 Dose: Not Given Metoprolol Succinate (Toprol Xl) 100 mg PO DAILY [facility] Last Admin: 11/01/17 09:44 Dose: 100 mg Rivaroxaban (Xarelto) 15 mg PO BID@0800,2000 [facility] Last Admin: 10/31/17 08:32 Dose: 15 mg Rosuvastatin Calcium (Crestor) 20 mg PO HS [facility] Last Admin: 10/31/17 22:10 Dose: 20 mg Sitagliptin Phosphate (Januvia) 100 mg PO DAILY [facility] Last Admin: 11/01/17 09:45 Dose: Not Given Physical Exam - Constitutional Appears: No Acute Distress - Head Exam Head Exam: ATRAUMATIC, NORMOCEPHALIC - Eye Exam Eye Exam: EOMI, PERRL - ENT Exam ENT Exam: Mucous Membranes Moist - Respiratory Exam Respiratory Exam: Clear to Auscultation Bilateral. absent: Rales, Rhonchi, Wheezes - Cardiovascular Exam Cardiovascular Exam: REGULAR RHYTHM, +S1, +S2 - GI/Abdominal Exam GI & Abdominal Exam: Normal Bowel Sounds, Soft. absent: Tenderness - Extremities Exam Additional comments: Legs wrapped bilaterally in compressive bandage - Neurological Exam Neurological exam: Alert, CN II-XII Intact, Oriented x3 - Psychiatric Exam Psychiatric exam: Normal Affect, Normal Mood - Skin Skin Exam: Dry, Warm Results - Vital Signs Recent Vital Signs: Last Vital Signs Temp 98.4 F 11/01/17 15:05 Pulse 86 11/01/17 15:05 Resp 20 11/01/17 15:05 BP 110/66 11/01/17 15:05 Pulse Ox 98 11/01/17 15:05 - Labs Result Diagrams: 11/01/17 07:27 11/01/17 07:27 Labs: Laboratory Results - last 24 hr 10/31/17 11/01/17 11/01/17 21:39 07:04 07:27 WBC 9.6 RBC 5.55 Hgb 15.5 Hct 45.1 MCV 81.3 MCH 27.9 MCHC 34.4 RDW 13.5 Plt Count 339 MPV 8.6 Neut % (Auto) 54.0 Lymph % (Auto) 25.4 [place] % (Auto) 7.0 Eos % (Auto) 12.2 H Baso % (Auto) 1.4 Neut # (Auto) 5.2 Lymph # (Auto) 2.4 [place] # (Auto) 0.7 Eos # (Auto) 1.2 H Baso # (Auto) 0.1 PT INR APTT Sodium Potassium Chloride Carbon Dioxide Anion Gap BUN Creatinine Est GFR ( Amer) Est GFR (Non-Af Amer) POC Glucose (mg/dL) 176 H 116 H Random Glucose Calcium Blood Type Antibody Screen 11/01/17 11/01/17 11/01/17 07:27 07:27 07:27 WBC RBC Hgb Hct MCV MCH MCHC RDW Plt Count MPV Neut % (Auto) Lymph % (Auto) [place] % (Auto) Eos % (Auto) Baso % (Auto) Neut # (Auto) Lymph # (Auto) [place] # (Auto) Eos # (Auto) Baso # (Auto) PT 14.3 H INR 1.3 APTT 37 H Sodium 138 Potassium 4.0 Chloride 101 Carbon Dioxide 26 Anion Gap 15 BUN 12 Creatinine 0.9 Est GFR ( Amer) > 60 Est GFR (Non-Af Amer) > 60 POC Glucose (mg/dL) Random Glucose 115 H Calcium 9.0 Blood Type O POSITIVE Antibody Screen Negative 11/01/17 11/01/17 11:00 16:20 WBC RBC Hgb Hct MCV MCH MCHC RDW Plt Count MPV Neut % (Auto) Lymph % (Auto) [place] % (Auto) Eos % (Auto) Baso % (Auto) Neut # (Auto) Lymph # (Auto) [place] # (Auto) Eos # (Auto) Baso # (Auto) PT INR APTT Sodium Potassium Chloride Carbon Dioxide Anion Gap BUN Creatinine Est GFR ( Amer) Est GFR (Non-Af Amer) POC Glucose (mg/dL) 139 H 123 H Random Glucose Calcium Blood Type Antibody Screen Assessment & Plan - Assessment and Plan (Free Text) Assessment: This is a 62 sherri old male with PMHx CVA, CAD, DM, HTN, HLD who presented to the hospital for right leg swelling. Patient diagnosed with acute thrombosis of the right lower extremity and underwent mechanical thrombolysis of the right femoral vein along with placement of an IVC filter. Patient is being transferred to the ICU for post op monitoring. Neuro Awake, verbal Cardio Assessment: Hx of CAD, HTN ASA 81 daily Toprol XL 100 mg PO daily Pulm Saturating well on room air GI Diabetic Diet Endocrine Assessment: Hx of DM 2 Regular ISS GLimepiride 2 mg PO ACB Januvia 100 mg PO daily Heme/onc Assessment: post op mechanical thrombectomy On Heparin drip Monitor H/H Prophylaxis Heparin drip Discussed with Dr. Marinelli <Sushil Marinelli S - Last Filed: 11/01/17 19:09> Meds - Medications Medications: Current Medications Aspirin (Aspirin Chewable) 81 mg PO DAILY [facility] Last Admin: 11/01/17 09:45 Dose: Not Given Glimepiride (Amaryl) 2 mg PO ACB [facility] Last Admin: 11/01/17 07:21 Dose: Not Given Dextrose/Sodium Chloride (Dextrose 5%/0.45% Ns 1000 Ml) 1,000 mls @ 100 mls/hr IV .Q10H [facility] Last Admin: 11/01/17 15:45 Dose: 100 mls/hr Heparin Sodium/Sodium Chloride (Heparin 71096 Units/250ml 1/2 Normal Saline) 25 ,000 units in 250 mls @ 12.247 mls/hr IV .[id number] PRN; Protocol; 18 UNITS/KG/HR PRN Reason: ADJUST RATE PER PROTOCOL Last Admin: 11/01/17 14:46 Dose: 18 units/kg/hr, 12.247 mls/hr Insulin Human Regular (Novolin R) 0 unit SC ACHS [facility] PRN Reason: Protocol Last Admin: 11/01/17 17:30 Dose: Not Given Metformin HCl (Glucophage) 500 mg PO BIDCC [facility] Last Admin: 11/01/17 17:00 Dose: Not Given Metoprolol Succinate (Toprol Xl) 100 mg PO DAILY [facility] Last Admin: 11/01/17 09:44 Dose: 100 mg Rivaroxaban (Xarelto) 15 mg PO BID@0800,1999 [facility] Last Admin: 10/31/17 08:32 Dose: 15 mg Rosuvastatin Calcium (Crestor) 20 mg PO [facility] Last Admin: 10/31/17 22:10 Dose: 20 mg Sitagliptin Phosphate (Januvia) 100 mg PO DAILY [facility] Last Admin: 11/01/17 09:45 Dose: Not Given Results - Vital Signs Recent Vital Signs: Last Vital Signs Temp 98.9 F 11/01/17 17:00 Pulse 86 11/01/17 15:05 Resp 20 11/01/17 15:05 BP 110/66 11/01/17 15:05 Pulse Ox 98 11/01/17 15:05 - Labs Result Diagrams: 11/01/17 07:27 11/01/17 07:27 Labs: Laboratory Results - last 24 hr 10/31/17 11/01/17 11/01/17 21:39 07:04 07:27 WBC 9.6 RBC 5.55 Hgb 15.5 Hct 45.1 MCV 81.3 MCH 27.9 MCHC 34.4 RDW 13.5 Plt Count 339 MPV 8.6 Neut % (Auto) 54.0 Lymph % (Auto) 25.4 [place] % (Auto) 7.0 Eos % (Auto) 12.2 H Baso % (Auto) 1.4 Neut # (Auto) 5.2 Lymph # (Auto) 2.4 [place] # (Auto) 0.7 Eos # (Auto) 1.2 H Baso # (Auto) 0.1 PT INR APTT Sodium Potassium Chloride Carbon Dioxide Anion Gap BUN Creatinine Est GFR ( Amer) Est GFR (Non-Af Amer) POC Glucose (mg/dL) 176 H 116 H Random Glucose Calcium Blood Type Antibody Screen 11/01/17 11/01/17 11/01/17 07:27 07:27 07:27 WBC RBC Hgb Hct MCV MCH MCHC RDW Plt Count MPV Neut % (Auto) Lymph % (Auto) [place] % (Auto) Eos % (Auto) Baso % (Auto) Neut # (Auto) Lymph # (Auto) [place] # (Auto) Eos # (Auto) Baso # (Auto) PT 14.3 H INR 1.3 APTT 37 H Sodium 138 Potassium 4.0 Chloride 101 Carbon Dioxide 26 Anion Gap 15 BUN 12 Creatinine 0.9 Est GFR ( Amer) > 60 Est GFR (Non-Af Amer) > 60 POC Glucose (mg/dL) Random Glucose 115 H Calcium 9.0 Blood Type O POSITIVE Antibody Screen Negative 11/01/17 11/01/17 11:00 16:20 WBC RBC Hgb Hct MCV MCH MCHC RDW Plt Count MPV Neut % (Auto) Lymph % (Auto) [place] % (Auto) Eos % (Auto) Baso % (Auto) Neut # (Auto) Lymph # (Auto) [place] # (Auto) Eos # (Auto) Baso # (Auto) PT INR APTT Sodium Potassium Chloride Carbon Dioxide Anion Gap BUN Creatinine Est GFR ( Amer) Est GFR (Non-Af Amer) POC Glucose (mg/dL) 139 H 123 H Random Glucose Calcium Blood Type Antibody Screen Attending/Attestation - Attestation I have personally seen and examined this patient.: Yes I have fully participated in the care of the patient.: Yes I have reviewed all pertinent clinical information: Yes Notes (Text): 11/01/17 19:09 patient seen and examined in the intensive care unit. Assessment and plan as per resident note
[2017-11-02] MEDS: Dextrose 5%/0.45% NS 1,000 ML IV SCH (02:00)
[2017-11-02 06:37] LABS: MEAN CELL VOLUME 80.8 fL (80.0-94.0); MEAN CORPUSCULAR HEMOGLOBIN 28.3 pg (27.0-31.0); MEAN CORPUSCULAR HGB CONC 35.1 g/dL (33.0-37.0); MEAN PLATELET VOLUME 8.7 fL (7.2-11.7); RBC 4.93 Mil/uL (4.40-5.90); RED CELL DISTRIBUTION WIDTH 13.2 % (11.5-14.5); WHITE BLOOD COUNT 11.5 K/uL (4.8-10.8)
[2017-11-02 06:54] LABS: ALB/GLOB RATIO 1.1 (1.0-2.1); ALBUMIN 3.5 g/dL (3.5-5.0); CALCIUM 8.7 mg/dl (8.6-10.4)
[2017-11-02] MEDS: (Novolin R) Insulin Human Regular 100 units/ml vial SC SCH ×4 (07:54→21:17)
[2017-11-02] MEDS: Acetylcysteine 20% Inhal Soln (4ml) PO SCH ×2 (10:01→21:14)
[2017-11-02] MEDS: Metoprolol Succinate 100 mg XL Tab PO SCH (10:05)
[2017-11-02] MEDS: Sodium Chloride 0.9% 1,000 ML IV SCH ×2 (10:07→18:45)
--- NOTE | 2017-11-02 11:07 | CP.PCM.PN ---
Subjective - Date & Time of Evaluation Date of Evaluation: 11/02/17 Time of Evaluation: 07:00 - Subjective Subjective: Vascular Surgery: Dr. Waters Pt seen and examined. s/p angio with thrombectomy & IVCF placement. Pt doing well post-op. States pain is well controlled. Tolerating diet. Denies N/V, F/C. Objective - Vital Signs/Intake and Output Vital Signs (last 24 hours): Temp Pulse Resp BP Pulse Ox 99 F 76 12 141/78 99 11/02/17 04:00 11/02/17 07:40 11/02/17 07:40 11/02/17 07:23 11/02/17 07:40 Intake and Output: 11/02/17 11/02/17 06:59 18:59 Intake Total 1666.4 262.2 Output Total 1100 Balance 566.4 262.2 - Medications Medications: Current Medications Acetylcysteine (Acetylcysteine 20%) 8 ml PO Q12H [facility] Stop: 11/03/17 21:01 Last Admin: 11/02/17 10:01 Dose: 8 ml Aspirin (Aspirin Chewable) 81 mg PO DAILY [facility] Last Admin: 11/02/17 10:04 Dose: 81 mg Glimepiride (Amaryl) 2 mg PO ACB [facility] Last Admin: 11/02/17 07:54 Dose: 2 mg Heparin Sodium/Sodium Chloride (Heparin 21703 Units/250ml 1/2 Normal Saline) 25 ,000 units in 250 mls @ 12.247 mls/hr IV .[id number] PRN; Protocol; 18 UNITS/KG/HR PRN Reason: ADJUST RATE PER PROTOCOL Last Titration: 11/02/17 09:00 Dose: 16 units/kg/hr, 10.886 mls/hr Sodium Chloride (Sodium Chloride 0.9%) 1,000 mls @ 100 mls/hr IV .Q10H [facility] Last Admin: 11/02/17 10:07 Dose: 100 mls/hr Insulin Human Regular (Novolin R) 0 unit SC ACHS [facility] PRN Reason: Protocol Last Admin: 11/02/17 07:54 Dose: 2 unit Metoprolol Succinate (Toprol Xl) 100 mg PO DAILY [facility] Last Admin: 11/02/17 10:05 Dose: 100 mg Rivaroxaban (Xarelto) 15 mg PO BID@0800,2000 [facility] Last Admin: 10/31/17 08:32 Dose: 15 mg Rosuvastatin Calcium (Crestor) 20 mg PO HS [facility] Last Admin: 11/01/17 21:59 Dose: 20 mg Sitagliptin Phosphate (Januvia) 100 mg PO DAILY [facility] Last Admin: 11/02/17 10:05 Dose: 100 mg - Labs Labs: 11/02/17 06:28 11/02/17 06:30 PT 14.3 SECONDS (9.7-12.2) H 11/01/17 07:27 INR 1.3 11/01/17 07:27 APTT 96 SECONDS (21-34) H 11/02/17 06:28 - Constitutional Appears: Well, No Acute Distress - Head Exam Head Exam: ATRAUMATIC, NORMOCEPHALIC - Eye Exam Eye Exam: Normal appearance - ENT Exam ENT Exam: Mucous Membranes Moist - Respiratory Exam Respiratory Exam: NORMAL BREATHING PATTERN - Cardiovascular Exam Cardiovascular Exam: RRR - GI/Abdominal Exam GI & Abdominal Exam: Soft. absent: Tenderness - Extremities Exam Additional comments: b/l extremities with anna bandage, C/D/I. palpable DP/PT b/l - Neurological Exam Neurological Exam: Alert, Awake, Oriented x3 - Skin Skin Exam: Dry, Warm Assessment and Plan - Assessment and Plan (Free Text) Assessment: 62M with RLE DVT s/p angio with thrombectomy & IVCF placement; POD#1 Plan: - pt clear for DC from surgical standpoint - can resume Xarelto and DC hep drip - d/w Dr. Jt Montes De Oca, PGY-3
--- NOTE | 2017-11-02 12:02 | VAS ---
DATE: 11/01/2017 PREOPERATIVE DIAGNOSIS: Deep vein thrombosis, right leg including right common femoral vein. PROCEDURE CARRIED OUT: 1. Placement of Option, removal of vena cava filter via left popliteal vein and venogram left leg. 2. Mechanical thrombolysis using the AngioJet device of the right popliteal and common femoral vein. SURGEON: Willie Waters Jr., MD PHOTOCOPY OPERATOR: None. ANESTHESIOLOGIST: Dr. Chan. INDICATIONS: The patient is a 62-year-old man with a recent history of deep vein thrombosis in the right leg. Ultrasound images showed extensive clot involving the right common femoral vein. OPERATIVE FINDINGS: Initially we placed a filter superiorly through the opposite popliteal vein. Using ultrasound guidance and micropuncture technique, we accessed the vein. We then advanced the wire centrally, deployed a filter, an Option ELITE filter over the wire at the appropriate location adjacent to the renal vein above the confluence of the leg vein. After this had been deployed, we then again made a puncture on the left side. Heparin had been given at full intravenous dose. We punctured the left side. We then placed an Amplatz wire up into the vena cava after exchanging it for guidewire. Again, the patient was fully anticoagulated. We then went through with a large AngioJet device and this was very successful. We then waited after we instilled of 10 mg of TPA and 100 of saline. We let this infused for 30 minutes and went through again with excellent clinical results and removal of most of the clot, we just grabbed all that we could see. Final pictures, however, did show some clot entrapped in the filter. We then went up and used the AngioJet to suction the residual portion out and the final completion picture was excellent, no residual clot in there. The patient was fully anticoagulated. Pressure was applied to both puncture sites and behind the knees and the procedure was terminated. Blood loss was 50 mL. OPERATION CARRIED OUT: 1. Placement of Option ELITE vena cava filter via left popliteal vein with ultrasound-guidance and micropuncture technique. 2. Mechanical thrombolysis of the right femoral and common femoral vein as well as the vena cava using the large AngioJet mechanical thrombolysis device. After all these procedures have been completed, final venograms were satisfactory and then we removed the catheters from behind the knees and applied pressure. Willie Waters Jr., MD cc: Ramos Willingham MD
--- NOTE | 2017-11-02 12:47 | CP.PCM.PN ---
Subjective - Date & Time of Evaluation Date of Evaluation: 11/02/17 Time of Evaluation: 12:45 - Subjective Subjective: s/p filter.labs noted.feels fine. Objective - Vital Signs/Intake and Output Vital Signs (last 24 hours): Temp Pulse Resp BP Pulse Ox 98.8 F 77 14 147/87 96 11/02/17 08:00 11/02/17 10:23 11/02/17 10:23 11/02/17 10:23 11/02/17 10:23 Intake and Output: 11/02/17 11/02/17 06:59 18:59 Intake Total 1666.4 827.1 Output Total 1100 550 Balance 566.4 277.1 - Medications Medications: Current Medications Acetylcysteine (Acetylcysteine 20%) 8 ml PO Q12H [facility] Stop: 11/03/17 21:01 Last Admin: 11/02/17 10:01 Dose: 8 ml Aspirin (Aspirin Chewable) 81 mg PO DAILY [facility] Last Admin: 11/02/17 10:04 Dose: 81 mg Glimepiride (Amaryl) 2 mg PO ACB [facility] Last Admin: 11/02/17 07:54 Dose: 2 mg Sodium Chloride (Sodium Chloride 0.9%) 1,000 mls @ 100 mls/hr IV .Q10H [facility] Last Admin: 11/02/17 10:07 Dose: 100 mls/hr Insulin Human Regular (Novolin R) 0 unit SC ACHS [facility] PRN Reason: Protocol Last Admin: 11/02/17 07:54 Dose: 2 unit Metoprolol Succinate (Toprol Xl) 100 mg PO DAILY [facility] Last Admin: 11/02/17 10:05 Dose: 100 mg Rivaroxaban (Xarelto) 15 mg PO BID@0800,2000 [facility] Last Admin: 10/31/17 08:32 Dose: 15 mg Rosuvastatin Calcium (Crestor) 20 mg PO HS [facility] Last Admin: 11/01/17 21:59 Dose: 20 mg Sitagliptin Phosphate (Januvia) 100 mg PO DAILY [facility] Last Admin: 11/02/17 10:05 Dose: 100 mg - Labs Labs: 11/02/17 06:28 11/02/17 06:30 PT 14.3 SECONDS (9.7-12.2) H 11/01/17 07:27 INR 1.3 11/01/17 07:27 APTT 96 SECONDS (21-34) H 11/02/17 06:28 - Constitutional Appears: No Acute Distress - Head Exam Head Exam: NORMOCEPHALIC - Neck Exam Neck Exam: Normal Inspection - Cardiovascular Exam Cardiovascular Exam: REGULAR RHYTHM - GI/Abdominal Exam GI & Abdominal Exam: Soft - Extremities Exam Extremities Exam: Pedal Edema - Neurological Exam Neurological Exam: Alert, Oriented x3 Assessment and Plan - Assessment and Plan (Free Text) Plan: dvt,acure renal failure. will have nephro eval.hold xarelto.may need eliquis if renal function is no better.
--- NOTE | 2017-11-02 14:28 | CP.CCUPN ---
<Brenden Stapleton - Last Filed: 11/02/17 14:21> CCU Subjective - Physician Review Subjective (Free Text): 11/02/17 14:21 Patient seen and examined. Patient is doing well with no acute complaints at this time. CCU Objective - Vital Signs / Intake & Output Vital Signs (Last 4 hours): Vital Signs Pulse Resp BP Pulse Ox 11/02/17 10:23 77 14 147/87 96 Intake and Output (Last 8hrs): Intake & Output 11/01/17 11/02/17 11/02/17 22:59 06:59 14:59 Intake Total 668.8 1097.6 827.1 Output Total 400 700 550 Balance 268.8 397.6 277.1 Weight 152 lb 1.903 oz Intake: IV 150 Intake, IV Amount 548.8 897.6 557.1 Left Antecubital 112.2 Left arm 100 left hand 300 800 500 left hand 2nd port 36.6 97.6 57.1 Oral 120 200 120 Output: Urine 400 700 550 Urethral (Villanueva) 400 700 550 Stool 0 Emesis 0 Other: # Voids Urine, Voided 0 # Bowel Movements 0 - Physical Exam Head: Positive for: Atraumatic, Normocephalic Pupils: Positive for: PERRL Extroacular Muscles: Positive for: EOMI Conjunctiva: Positive for: Normal Mouth: Positive for: Moist Mucous Membranes Respiratory/Chest: Positive for: Clear to Auscultation. Negative for: Wheezes, Rales, Rhonchi Cardiovascular: Positive for: Regular Rate and Rhythm, Normal S1, S2 Abdomen: Positive for: Normal Bowel Sounds. Negative for: Tenderness Upper Extremity: Positive for: Normal Inspection Lower Extremity: Positive for: Other (legs wrapped in compressive bandages bilaterally) Neurological: Positive for: GCS=15 Skin: Positive for: Warm, Dry Psychiatric: Positive for: Alert, Oriented x 3 - Medications Active Medications: Active Medications Generic Name Dose Route Start Last Admin Trade Name Freq PRN Reason Stop Dose Admin Acetylcysteine 8 ml 11/02/17 09:00 11/02/17 10:01 Acetylcysteine 20% PO 11/03/17 21:01 8 ml Q12H [facility] Administration Aspirin 81 mg 10/28/17 10:00 11/02/17 10:04 Aspirin Chewable PO 81 mg DAILY [facility] Administration Glimepiride 2 mg 10/28/17 10:15 11/02/17 07:54 Amaryl PO 2 mg ACB [facility] Administration Sodium Chloride 1,000 mls @ 100 mls/hr 11/02/17 09:00 11/02/17 10:07 Sodium Chloride 0.9% IV 100 mls/hr .Q10H [facility] Administration Insulin Human Regular 0 unit 10/27/17 22:00 11/02/17 11:30 Novolin R SC Not Given ACHS [facility] Protocol Metoprolol Succinate 100 mg 10/28/17 10:00 11/02/17 10:05 Toprol Xl PO 100 mg DAILY [facility] Administration Rivaroxaban 15 mg 10/30/17 20:00 10/31/17 08:32 Xarelto PO 15 mg BID@0800,1999 [facility] Administration Rosuvastatin Calcium 20 mg 10/27/17 22:00 11/01/17 21:59 Crestor PO 20 mg HS [facility] Administration Sitagliptin Phosphate 100 mg 10/28/17 10:15 11/02/17 10:05 Januvia PO 100 mg DAILY [facility] Administration - Patient Studies Lab Studies: Lab Studies 11/02/17 11/02/17 11/02/17 Range/Units 11:20 07:13 06:30 WBC (4.8-10.8) K/uL RBC (4.40-5.90) Mil/uL Hgb (12.0-18.0) g/dL Hct (35.0-51.0) % MCV (80.0-94.0) fL MCH (27.0-31.0) pg MCHC (33.0-37.0) g/dL RDW (11.5-14.5) % Plt Count (130-400) K/uL MPV (7.2-11.7) fL APTT (21-34) SECONDS Sodium 135 (132-148) mmol/L Potassium 3.9 (3.6-5.2) mmol/L Chloride 103 (98-107) mmol/L Carbon Dioxide 22 (22-30) mmol/L Anion Gap 14 (10-20) BUN 25 H (9-20) mg/dL Creatinine 1.9 H (0.8-1.5) mg/dL Est GFR ( Amer) 44 Est GFR (Non-Af Amer) 36 POC Glucose (mg/dL) 171 H 235 H (65-110) mg/dL Random Glucose 244 H (75-110) mg/dL Calcium 8.7 (8.6-10.4) mg/dl Phosphorus 3.7 (2.5-4.5) mg/dL Magnesium 1.7 (1.6-2.3) mg/dL Total Bilirubin 2.2 H (0.2-1.3) mg/dL AST 163 H D (17-59) U/L ALT 21 D (21-72) U/L Alkaline Phosphatase 72 (38-126) U/L Total Protein 6.7 (6.3-8.3) g/dL Albumin 3.5 (3.5-5.0) g/dL Globulin 3.2 (2.2-3.9) gm/dL Albumin/Globulin Ratio 1.1 (1.0-2.1) 11/02/17 11/02/17 11/01/17 Range/Units 06:28 06:28 22:45 WBC 11.5 H (4.8-10.8) K/uL RBC 4.93 (4.40-5.90) Mil/uL Hgb 14.0 (12.0-18.0) g/dL Hct 39.8 (35.0-51.0) % MCV 80.8 (80.0-94.0) fL MCH 28.3 (27.0-31.0) pg MCHC 35.1 (33.0-37.0) g/dL RDW 13.2 (11.5-14.5) % Plt Count 251 (130-400) K/uL MPV 8.7 (7.2-11.7) fL APTT 96 H 95 H D (21-34) SECONDS Sodium (132-148) mmol/L Potassium (3.6-5.2) mmol/L Chloride (98-107) mmol/L Carbon Dioxide (22-30) mmol/L Anion Gap (10-20) BUN (9-20) mg/dL Creatinine (0.8-1.5) mg/dL Est GFR ( Amer) Est GFR (Non-Af Amer) POC Glucose (mg/dL) (65-110) mg/dL Random Glucose (75-110) mg/dL Calcium (8.6-10.4) mg/dl Phosphorus (2.5-4.5) mg/dL Magnesium (1.6-2.3) mg/dL Total Bilirubin (0.2-1.3) mg/dL AST (17-59) U/L ALT (21-72) U/L Alkaline Phosphatase (38-126) U/L Total Protein (6.3-8.3) g/dL Albumin (3.5-5.0) g/dL Globulin (2.2-3.9) gm/dL Albumin/Globulin Ratio (1.0-2.1) 11/01/17 11/01/17 Range/Units 21:31 16:20 WBC (4.8-10.8) K/uL RBC (4.40-5.90) Mil/uL Hgb (12.0-18.0) g/dL Hct (35.0-51.0) % MCV (80.0-94.0) fL MCH (27.0-31.0) pg MCHC (33.0-37.0) g/dL RDW (11.5-14.5) % Plt Count (130-400) K/uL MPV (7.2-11.7) fL APTT (21-34) SECONDS Sodium (132-148) mmol/L Potassium (3.6-5.2) mmol/L Chloride (98-107) mmol/L Carbon Dioxide (22-30) mmol/L Anion Gap (10-20) BUN (9-20) mg/dL Creatinine (0.8-1.5) mg/dL Est GFR ( Amer) Est GFR (Non-Af Amer) POC Glucose (mg/dL) 287 H 123 H (65-110) mg/dL Random Glucose (75-110) mg/dL Calcium (8.6-10.4) mg/dl Phosphorus (2.5-4.5) mg/dL Magnesium (1.6-2.3) mg/dL Total Bilirubin (0.2-1.3) mg/dL AST (17-59) U/L ALT (21-72) U/L Alkaline Phosphatase (38-126) U/L Total Protein (6.3-8.3) g/dL Albumin (3.5-5.0) g/dL Globulin (2.2-3.9) gm/dL Albumin/Globulin Ratio (1.0-2.1) Laboratory Results - last 24 hr 11/01/17 11/01/17 11/01/17 16:20 21:31 22:45 WBC RBC Hgb Hct MCV MCH MCHC RDW Plt Count MPV APTT 95 H D Sodium Potassium Chloride Carbon Dioxide Anion Gap BUN Creatinine Est GFR ( Amer) Est GFR (Non-Af Amer) POC Glucose (mg/dL) 123 H 287 H Random Glucose Calcium Phosphorus Magnesium Total Bilirubin AST ALT Alkaline Phosphatase Total Protein Albumin Globulin Albumin/Globulin Ratio 11/02/17 11/02/17 11/02/17 06:28 06:28 06:30 WBC 11.5 H RBC 4.93 Hgb 14.0 Hct 39.8 MCV 80.8 MCH 28.3 MCHC 35.1 RDW 13.2 Plt Count 251 MPV 8.7 APTT 96 H Sodium 135 Potassium 3.9 Chloride 103 Carbon Dioxide 22 Anion Gap 14 BUN 25 H Creatinine 1.9 H Est GFR ( Amer) 44 Est GFR (Non-Af Amer) 36 POC Glucose (mg/dL) Random Glucose 244 H Calcium 8.7 Phosphorus 3.7 Magnesium 1.7 Total Bilirubin 2.2 H AST 163 H D ALT 21 D Alkaline Phosphatase 72 Total Protein 6.7 Albumin 3.5 Globulin 3.2 Albumin/Globulin Ratio 1.1 11/02/17 11/02/17 07:13 11:20 WBC RBC Hgb Hct MCV MCH MCHC RDW Plt Count MPV APTT Sodium Potassium Chloride Carbon Dioxide Anion Gap BUN Creatinine Est GFR ( Amer) Est GFR (Non-Af Amer) POC Glucose (mg/dL) 235 H 171 H Random Glucose Calcium Phosphorus Magnesium Total Bilirubin AST ALT Alkaline Phosphatase Total Protein Albumin Globulin Albumin/Globulin Ratio Fingerstick Blood Sugar Results: 235 Critical Care Progress Note - Nutrition Nutrition: Nutrition Category Date Time Status Diabetic [Consistent Carbohydrate] [DIET] Diets 11/01/17 Dinner Active Assessment/Plan - Assessment and Plan (Free Text) Assessment: This is a 62 sherri old male with PMHx CVA, CAD, DM, HTN, HLD who presented to the hospital for right leg swelling. Patient diagnosed with acute thrombosis of the right lower extremity and underwent mechanical thrombolysis of the right femoral vein along with placement of an IVC filter. Patient is being transferred to the ICU for post op monitoring. Neuro Awake, verbal Cardio Assessment: Hx of CAD, HTN ASA 81 daily Toprol XL 100 mg PO daily Pulm Saturating well on room air GI Diabetic Diet Endocrine Assessment: Hx of DM 2 Regular ISS GLimepiride 2 mg PO ACB Januvia 100 mg PO daily Heme/onc Assessment: post op mechanical thrombectomy Heparin drip discontinued Eliquis 10 mg PO Q12H started Monitor H/H Renal Assessment: Acute Kidney Injury Mucomyst 8 ml PO Q12H x4 doses NS 100 cc/hr Renal ultrasound ordered, awaiting read Primary has consulted nephrology Prophylaxis Eliquis 10 mg PO Q12 PT/OT ordered Discussed with Dr. Mally Gomez <Selena Gomez - Last Filed: 11/02/17 16:33> CCU Objective - Vital Signs / Intake & Output Intake and Output (Last 8hrs): Intake & Output 11/02/17 11/02/17 11/02/17 06:59 14:59 22:59 Intake Total 1097.6 827.1 Output Total 700 550 Balance 397.6 277.1 Weight 152 lb 1.903 oz Intake: IV 150 Intake, IV Amount 897.6 557.1 left hand 800 500 left hand 2nd port 97.6 57.1 Oral 200 120 Output: Urine 700 550 Urethral (Villanueva) 700 550 - Medications Active Medications: Active Medications Generic Name Dose Route Start Last Admin Trade Name Freq PRN Reason Stop Dose Admin Acetylcysteine 8 ml 11/02/17 09:00 11/02/17 10:01 Acetylcysteine 20% PO 11/03/17 21:01 8 ml Q12H [facility] Administration Apixaban 10 mg 11/02/17 18:00 Eliquis PO 11/08/17 18:01 Q12H [facility] Aspirin 81 mg 10/28/17 10:00 11/02/17 10:04 Aspirin Chewable PO 81 mg DAILY [facility] Administration Glimepiride 2 mg 10/28/17 10:15 11/02/17 07:54 Amaryl PO 2 mg ACB [facility] Administration Sodium Chloride 1,000 mls @ 100 mls/hr 11/02/17 09:00 11/02/17 10:07 Sodium Chloride 0.9% IV 100 mls/hr .Q10H [facility] Administration Insulin Human Regular 0 unit 10/27/17 22:00 11/02/17 11:30 Novolin R SC Not Given ACHS [facility] Protocol Metoprolol Succinate 100 mg 10/28/17 10:00 11/02/17 10:05 Toprol Xl PO 100 mg DAILY [facility] Administration Rosuvastatin Calcium 20 mg 10/27/17 22:00 11/01/17 21:59 Crestor PO 20 mg HS [facility] Administration Sitagliptin Phosphate 100 mg 10/28/17 10:15 11/02/17 10:05 Januvia PO 100 mg DAILY [facility] Administration - Patient Studies Lab Studies: Lab Studies 11/02/17 11/02/17 11/02/17 Range/Units 11:20 07:13 06:30 WBC (4.8-10.8) K/uL RBC (4.40-5.90) Mil/uL Hgb (12.0-18.0) g/dL Hct (35.0-51.0) % MCV (80.0-94.0) fL MCH (27.0-31.0) pg MCHC (33.0-37.0) g/dL RDW (11.5-14.5) % Plt Count (130-400) K/uL MPV (7.2-11.7) fL APTT (21-34) SECONDS Sodium 135 (132-148) mmol/L Potassium 3.9 (3.6-5.2) mmol/L Chloride 103 (98-107) mmol/L Carbon Dioxide 22 (22-30) mmol/L Anion Gap 14 (10-20) BUN 25 H (9-20) mg/dL Creatinine 1.9 H (0.8-1.5) mg/dL Est GFR ( Amer) 44 Est GFR (Non-Af Amer) 36 POC Glucose (mg/dL) 171 H 235 H (65-110) mg/dL Random Glucose 244 H (75-110) mg/dL Calcium 8.7 (8.6-10.4) mg/dl Phosphorus 3.7 (2.5-4.5) mg/dL Magnesium 1.7 (1.6-2.3) mg/dL Total Bilirubin 2.2 H (0.2-1.3) mg/dL AST 163 H D (17-59) U/L ALT 21 D (21-72) U/L Alkaline Phosphatase 72 (38-126) U/L Total Protein 6.7 (6.3-8.3) g/dL Albumin 3.5 (3.5-5.0) g/dL Globulin 3.2 (2.2-3.9) gm/dL Albumin/Globulin Ratio 1.1 (1.0-2.1) 11/02/17 11/02/17 11/01/17 Range/Units 06:28 06:28 22:45 WBC 11.5 H (4.8-10.8) K/uL RBC 4.93 (4.40-5.90) Mil/uL Hgb 14.0 (12.0-18.0) g/dL Hct 39.8 (35.0-51.0) % MCV 80.8 (80.0-94.0) fL MCH 28.3 (27.0-31.0) pg MCHC 35.1 (33.0-37.0) g/dL RDW 13.2 (11.5-14.5) % Plt Count 251 (130-400) K/uL MPV 8.7 (7.2-11.7) fL APTT 96 H 95 H D (21-34) SECONDS Sodium (132-148) mmol/L Potassium (3.6-5.2) mmol/L Chloride (98-107) mmol/L Carbon Dioxide (22-30) mmol/L Anion Gap (10-20) BUN (9-20) mg/dL Creatinine (0.8-1.5) mg/dL Est GFR ( Amer) Est GFR (Non-Af Amer) POC Glucose (mg/dL) (65-110) mg/dL Random Glucose (75-110) mg/dL Calcium (8.6-10.4) mg/dl Phosphorus (2.5-4.5) mg/dL Magnesium (1.6-2.3) mg/dL Total Bilirubin (0.2-1.3) mg/dL AST (17-59) U/L ALT (21-72) U/L Alkaline Phosphatase (38-126) U/L Total Protein (6.3-8.3) g/dL Albumin (3.5-5.0) g/dL Globulin (2.2-3.9) gm/dL Albumin/Globulin Ratio (1.0-2.1) 11/01/17 Range/Units 21:31 WBC (4.8-10.8) K/uL RBC (4.40-5.90) Mil/uL Hgb (12.0-18.0) g/dL Hct (35.0-51.0) % MCV (80.0-94.0) fL MCH (27.0-31.0) pg MCHC (33.0-37.0) g/dL RDW (11.5-14.5) % Plt Count (130-400) K/uL MPV (7.2-11.7) fL APTT (21-34) SECONDS Sodium (132-148) mmol/L Potassium (3.6-5.2) mmol/L Chloride (98-107) mmol/L Carbon Dioxide (22-30) mmol/L Anion Gap (10-20) BUN (9-20) mg/dL Creatinine (0.8-1.5) mg/dL Est GFR ( Amer) Est GFR (Non-Af Amer) POC Glucose (mg/dL) 287 H (65-110) mg/dL Random Glucose (75-110) mg/dL Calcium (8.6-10.4) mg/dl Phosphorus (2.5-4.5) mg/dL Magnesium (1.6-2.3) mg/dL Total Bilirubin (0.2-1.3) mg/dL AST (17-59) U/L ALT (21-72) U/L Alkaline Phosphatase (38-126) U/L Total Protein (6.3-8.3) g/dL Albumin (3.5-5.0) g/dL Globulin (2.2-3.9) gm/dL Albumin/Globulin Ratio (1.0-2.1) Laboratory Results - last 24 hr 11/01/17 11/01/17 11/02/17 21:31 22:45 06:28 WBC 11.5 H RBC 4.93 Hgb 14.0 Hct 39.8 MCV 80.8 MCH 28.3 MCHC 35.1 RDW 13.2 Plt Count 251 MPV 8.7 APTT 95 H D Sodium Potassium Chloride Carbon Dioxide Anion Gap BUN Creatinine Est GFR ( Amer) Est GFR (Non-Af Amer) POC Glucose (mg/dL) 287 H Random Glucose Calcium Phosphorus Magnesium Total Bilirubin AST ALT Alkaline Phosphatase Total Protein Albumin Globulin Albumin/Globulin Ratio 11/02/17 11/02/17 11/02/17 06:28 06:30 07:13 WBC RBC Hgb Hct MCV MCH MCHC RDW Plt Count MPV APTT 96 H Sodium 135 Potassium 3.9 Chloride 103 Carbon Dioxide 22 Anion Gap 14 BUN 25 H Creatinine 1.9 H Est GFR ( Amer) 44 Est GFR (Non-Af Amer) 36 POC Glucose (mg/dL) 235 H Random Glucose 244 H Calcium 8.7 Phosphorus 3.7 Magnesium 1.7 Total Bilirubin 2.2 H AST 163 H D ALT 21 D Alkaline Phosphatase 72 Total Protein 6.7 Albumin 3.5 Globulin 3.2 Albumin/Globulin Ratio 1.1 11/02/17 11:20 WBC RBC Hgb Hct MCV MCH MCHC RDW Plt Count MPV APTT Sodium Potassium Chloride Carbon Dioxide Anion Gap BUN Creatinine Est GFR ( Amer) Est GFR (Non-Af Amer) POC Glucose (mg/dL) 171 H Random Glucose Calcium Phosphorus Magnesium Total Bilirubin AST ALT Alkaline Phosphatase Total Protein Albumin Globulin Albumin/Globulin Ratio Critical Care Progress Note - Nutrition Nutrition: Nutrition Category Date Time Status Diabetic [Consistent Carbohydrate] [DIET] Diets 11/01/17 Dinner Active Assessment/Plan - Assessment and Plan (Free Text) Assessment: Above resident note reviewed. Patient has h/o DVT s/p thrombectomy. -No contraindications for antocoagulation -JOSE: liekly 2nd contrast induced, start mucomyst oral and avoid nephrotoxic drugs, avoid ACEI until creatinine improves -hold metformin -Patient remains hemodynamically stable -Patient can be started on oral NOAC -Patient will benefit from Age Appropriate cancer screening. - Date & Time Date: 11/02/17 Time: 16:33
--- NOTE | 2017-11-02 14:43 | US ---
PROCEDURE: Ultrasound of the Kidneys HISTORY: check for kidney injury COMPARISON: None available. TECHNIQUE: Sonogram of the kidneys. FINDINGS: RIGHT KIDNEY: Measures: 10.0 cm. Diffusely increased cortical echogenicity. No mass. No hydronephrosis. 6 mm nonobstructing calculus mid right kidney. LEFT KIDNEY: Measures: 10.8 cm. Diffusely increased cortical echogenicity. No mass. No hydronephrosis. Several tiny nonobstructing mid left renal calculi versus vascular calcification. , OTHER FINDINGS: None. IMPRESSION: Bilaterally echogenic kidneys consistent with diffuse medical renal disease. Tiny nonobstructing calculi bilaterally versus vascular calcifications.
--- NOTE | 2017-11-02 19:35 | CP.PCM.CON ---
History of Present Illness - History of Present Illness History of Present Illness: pt is seen and examined, full consult is dictated #[id number] 1. Monico, most likleys ec to SHASTA 2. Rt CFv dvt 3. s/p thrombectomy and IVCF avoid nephrotoxic agents and acei for now, c/w gentle iv hydration bmp in am Past Patient History - Past Social History Smoking Status: Never Smoked - CARDIAC Hx Hypertension: Yes - NEUROLOGICAL HX Cerebrovascular Accident: Yes (No residual deficits) - ENDOCRINE/METABOLIC Hx Diabetes Mellitus Type 2: Yes - MUSCULOSKELETAL/RHEUMATOLOGICAL Hx Falls: No - PSYCHIATRIC Hx Substance Use: No - SURGICAL HISTORY Hx Surgeries: No - ANESTHESIA Hx Anesthesia: Yes Meds Allergies/Adverse Reactions: Allergies Allergy/AdvReac Type Severity Reaction Status Date / Time No Known Allergies Allergy Verified 10/27/17 15:42 - Medications Medications: Current Medications Acetylcysteine (Acetylcysteine 20%) 8 ml PO Q12H [facility] Stop: 11/03/17 21:01 Last Admin: 11/02/17 10:01 Dose: 8 ml Apixaban (Eliquis) 10 mg PO Q12H [facility] Stop: 11/08/17 18:01 Last Admin: 11/02/17 18:45 Dose: 10 mg Aspirin (Aspirin Chewable) 81 mg PO DAILY [facility] Last Admin: 11/02/17 10:04 Dose: 81 mg Glimepiride (Amaryl) 2 mg PO ACB [facility] Last Admin: 11/02/17 07:54 Dose: 2 mg Sodium Chloride (Sodium Chloride 0.9%) 1,000 mls @ 100 mls/hr IV .Q10H [facility] Last Admin: 11/02/17 18:45 Dose: 100 mls/hr Insulin Human Regular (Novolin R) 0 unit SC ACHS [facility] PRN Reason: Protocol Last Admin: 11/02/17 17:09 Dose: Not Given Metoprolol Succinate (Toprol Xl) 100 mg PO DAILY [facility] Last Admin: 11/02/17 10:05 Dose: 100 mg Rosuvastatin Calcium (Crestor) 20 mg PO HS [facility] Last Admin: 11/01/17 21:59 Dose: 20 mg Sitagliptin Phosphate (Januvia) 100 mg PO DAILY [facility] Last Admin: 11/02/17 10:05 Dose: 100 mg Results - Vital Signs Recent Vital Signs: Last Vital Signs Temp 97.3 F L 11/02/17 19:20 Pulse 79 11/02/17 19:20 Resp 18 11/02/17 19:20 BP 139/72 11/02/17 19:20 Pulse Ox 95 11/02/17 19:20 - Labs Result Diagrams: 11/02/17 06:28 11/02/17 06:30 Labs: Laboratory Results - last 24 hr 11/01/17 11/01/17 11/02/17 21:31 22:45 06:28 WBC 11.5 H RBC 4.93 Hgb 14.0 Hct 39.8 MCV 80.8 MCH 28.3 MCHC 35.1 RDW 13.2 Plt Count 251 MPV 8.7 APTT 95 H D Sodium Potassium Chloride Carbon Dioxide Anion Gap BUN Creatinine Est GFR ( Amer) Est GFR (Non-Af Amer) POC Glucose (mg/dL) 287 H Random Glucose Calcium Phosphorus Magnesium Total Bilirubin AST ALT Alkaline Phosphatase Total Protein Albumin Globulin Albumin/Globulin Ratio 11/02/17 11/02/17 11/02/17 06:28 06:30 07:13 WBC RBC Hgb Hct MCV MCH MCHC RDW Plt Count MPV APTT 96 H Sodium 135 Potassium 3.9 Chloride 103 Carbon Dioxide 22 Anion Gap 14 BUN 25 H Creatinine 1.9 H Est GFR ( Amer) 44 Est GFR (Non-Af Amer) 36 POC Glucose (mg/dL) 235 H Random Glucose 244 H Calcium 8.7 Phosphorus 3.7 Magnesium 1.7 Total Bilirubin 2.2 H AST 163 H D ALT 21 D Alkaline Phosphatase 72 Total Protein 6.7 Albumin 3.5 Globulin 3.2 Albumin/Globulin Ratio 1.1 11/02/17 11/02/17 11:20 16:30 WBC RBC Hgb Hct MCV MCH MCHC RDW Plt Count MPV APTT Sodium Potassium Chloride Carbon Dioxide Anion Gap BUN Creatinine Est GFR ( Amer) Est GFR (Non-Af Amer) POC Glucose (mg/dL) 171 H 107 Random Glucose Calcium Phosphorus Magnesium Total Bilirubin AST ALT Alkaline Phosphatase Total Protein Albumin Globulin Albumin/Globulin Ratio
[2017-11-02 20:41] LABS: CREATININE, RANDOM URINE 33.1 mg/dL
[2017-11-03] MEDS: Sodium Chloride 0.9% 1,000 ML IV SCH ×2 (06:13→16:02)
--- NOTE | 2017-11-03 06:46 | CON ---
DATE: 11/02/2017. REASON FOR RENAL CONSULTATION: Acute renal failure. REQUESTED BY: Dr. Ramos Willingham. HISTORY OF PRESENT ILLNESS: Mr. Solorio is a 62 years old male with a past medical history significant for longstanding hypertension, diabetes for more than 10 years, hyperlipidemia and CVA about 10 years ago, coronary artery disease status post stent placement in June 2007 was admitted with chief complaints of the right leg pain and swelling since 10/22/2017 and subsequently the patient went to Dr. Ramos Willingham's office on 10/27/2017 and the patient was suspected to have DVT and sent to the emergency room for further evaluation, found to have a DVT of the common femoral vein and subsequently the patient underwent abdominal aortogram and also thrombolysis and inferior vena cava placement. The patient was found to have worsening renal function since admission. Renal consult requested for further evaluation. The patient is feeling much better, right leg swelling is improving and pain is improving. Denies any chest pain or palpitation. Denies any fever or cough. No abdominal pain. No nausea, vomiting, diarrhea. No dysuria. The patient does complaint of swelling of the right leg. PAST MEDICAL HISTORY: Significant for hypertension, more than 10 years, diabetes type 2 more than 10 years, hyperlipidemia, CVA about 10 years ago without residual weakness and coronary artery disease status post stent placement in June 2007. PAST SURGICAL HISTORY: Denies any surgeries other than cardiac cath and stent placement. ALLERGIES: NO KNOWN DRUG ALLERGIES. SOCIAL HISTORY: The patient denies any smoking. The patient drinks alcohol every day. No drug abuse. PERSONAL HISTORY: He is and he has four children. FAMILY HISTORY: Not significant. CURRENT MEDICATIONS: Acetylcysteine 20% 8 mL p.o. every 12 hours, Amaryl 2 mg p.o. a.cb aspirin 81 mg p.o. daily, Crestor 20 mg p.o. at bedtime, Eliquis 10 mg p.o. every 12 hours, Januvia 100 mg p.o. daily, Novolin R for sliding scale, IV fluids normal saline at 100 mL/hour, metoprolol 100 mg p.o. daily. REVIEW OF SYSTEMS: Significant for right lower extremity pain and swelling which is improving. All other review of systems reviewed and are negative. PHYSICAL EXAMINATION: VITAL SIGNS: Blood pressure 139/72, pulse 79, respirations 18, temperature 97.3, saturation 95%. Height 8 feet 9 inches and weight is 152 pounds. GENERAL: Mr. Solorio is a 62 years old elderly male, moderately built, moderately nourished, not in acute distress. HEENT: Pupils normal, reactive to light and accommodation. Conjunctiva pink. Sclerae nonicteric. Tongue is moist. Trachea is midline. LUNGS: Symmetric on both sides. Bilateral breath sounds present. Clear to auscultation. CVS: [place] at the fifth intercostal space , midclavicular line. S1 and S2 audible. No murmur or gallop. ABDOMEN: Normal in appearance, soft, tympanic. No guarding, no rigidity. No hepatosplenomegaly. DIRECTOR NURSING SERVICE: The patient is alert, awake, oriented x3. Nonfocal neuro examination. Cranial nerves II through XII grossly intact. Sensory and motor system is within normal limits. EXTREMITIES: No cyanosis, no clubbing or edema on the left leg. The patient has swelling of the right lower extremity. LABORATORY DATA: Include as follows as of 11/02/2017, WBC 11.5, hemoglobin 14, hematocrit is 39.8, platelets 251, PTT 96. Sodium 135, potassium 3.9, chloride 103, CO 22, BUN 25, creatinine 1.9, glucose 244, calcium 8.7, phosphorus 3.7, magnesium 1.7. Total bili 2.2, AST 163, ALT 21, alkaline phosphatase 72, total protein 6.7, albumin is 3.5 and urine osmolality 237, urine creatinine is 33.1, urine sodium is 47. Accu-Cheks 171, 107 and 172. Other laboratory data as of 11/01/2017, sodium 138, potassium 4, chloride 101, CO 26, BUN 12, creatinine 0.9, glucose 115, calcium is 9 and H and H 15.5/45.1. As of 10/27/2017, BUN is 9, creatinine 0.7 and D-dimer is 1987 and troponin 0.012. Other laboratory data duplex scan of the lower extremity as of 10/28/2017 impression right acute thrombosis of the right common femoral, popliteal and posterior tibial and peroneal veins with severe reduction of the venous return, no a evidence of deep or superficial vein thrombosis of the left lower extremity, normal wall function noted on the left side. Ultrasound of the kidneys as of 11/02/2017, bilateral echogenic kidneys consistent with diffuse medical renal disease, tiny nonobstructing calculi bilaterally versus vascular calcification right kidney is 10 cm, left kidney is 10.[address] angiography as of 10/30/2017, impression documentation of the right common femoral vein thrombosis, no evidence of more proximal thrombosis or other pathologic process externally iliac, internal iliac, common iliac and IVC are within normal limits. No evidence of portal vein thrombosis, no visual IVC thrombus, thrombus identified in the right common femoral vein. ASSESSMENT: In summary, Mr. Solorio is a 62 years old elderly male with past medical history significant for longstanding hypertension, diabetes, hyperlipidemia, coronary artery disease, cerebrovascular accident, was admitted with right lower extremity pain and swelling since 10/22/2017 and admitted on 10/27/2017 after referring from PMD office, Dr. Ramos Willingham for suspected deep venous thrombosis, the patient was confirmed with a deep venous thrombosis and admitted to the hospital status post CT angiogram on 10/30/2017 and the patient underwent status post lysis of the clot in the right femoral and common femoral vein and status post inferior vena cava filter placement via left popliteal with increased BUN, creatinine. 1. Acute renal failure most likely nonoliguric secondary to acute tubular necrosis secondary to contrast induced nephropathy. 2. Hypertension. Blood pressure stable. 3. Acute deep vein thrombosis of the right lower extremity status post thrombolysis of the femoral and common femoral vein and also status post inferior vena cava filter placement after thrombolysis on 11/01/2017. 4. Diabetes. Sugars are under control. PLAN: Continue anticoagulation as per Dr. Ramos Willingham and agree with IV fluids 100 mL per hour and may not benefit from the Mucomyst at this time after insult from the contrast. Continue to monitor BMP in a.m. and we will follow with you. Thank you for allowing me to participate in your patient's care. Bradley Osei MD [facility]
[2017-11-03] MEDS: (Novolin R) Insulin Human Regular 100 units/ml vial SC SCH ×4 (07:38→21:39)
[2017-11-03] MEDS: Acetylcysteine 20% Inhal Soln (4ml) PO SCH ×2 (09:00→21:44)
[2017-11-03] MEDS: Metoprolol Succinate 100 mg XL Tab PO SCH (09:01)
[2017-11-03 10:45] LABS: BASO # 0.1 K/uL (0.0-0.2); BASO % 1.1 % (0.0-2.0); EOS # 0.5 K/uL (0.0-0.7); EOS % 5.9 % (0.0-4.0); HEMOGLOBIN 12.7 g/dL (12.0-18.0); LYMPH % 12.3 % (20.0-40.0); MEAN CELL VOLUME 79.9 fL (80.0-94.0); MEAN CORPUSCULAR HEMOGLOBIN 28.4 pg (27.0-31.0); MEAN CORPUSCULAR HGB CONC 35.6 g/dL (33.0-37.0); MEAN PLATELET VOLUME 8.8 fL (7.2-11.7); MONO # 0.7 K/uL (0.0-0.8); MONO % 8.8 % (0.0-10.0); NEUT % 71.9 % (50.0-75.0); RBC 4.45 Mil/uL (4.40-5.90); RED CELL DISTRIBUTION WIDTH 13.4 % (11.5-14.5); WHITE BLOOD COUNT 8.3 K/uL (4.8-10.8)
[2017-11-03 10:59] LABS: ALBUMIN 2.8 g/dL (3.5-5.0); CALCIUM 8.3 mg/dl (8.6-10.4)
--- NOTE | 2017-11-03 12:37 | CP.PCM.PN ---
Subjective - Date & Time of Evaluation Date of Evaluation: 11/03/17 Time of Evaluation: 12:36 - Subjective Subjective: feels fine. Objective - Vital Signs/Intake and Output Vital Signs (last 24 hours): Temp Pulse Resp BP Pulse Ox 98.8 F 83 20 111/71 95 11/03/17 07:40 11/03/17 08:06 11/03/17 07:40 11/03/17 07:40 11/03/17 07:40 Intake and Output: 11/03/17 11/03/17 06:59 18:59 Intake Total 500 Output Total 260 Balance 240 - Medications Medications: Current Medications Acetylcysteine (Acetylcysteine 20%) 8 ml PO Q12H [facility] Stop: 11/03/17 21:01 Last Admin: 11/03/17 09:00 Dose: 8 ml Apixaban (Eliquis) 10 mg PO Q12H [facility] Stop: 11/08/17 18:01 Last Admin: 11/03/17 06:10 Dose: 10 mg Aspirin (Aspirin Chewable) 81 mg PO DAILY [facility] Last Admin: 11/03/17 09:01 Dose: 81 mg Glimepiride (Amaryl) 2 mg PO ACB [facility] Last Admin: 11/03/17 06:38 Dose: 2 mg Sodium Chloride (Sodium Chloride 0.9%) 1,000 mls @ 100 mls/hr IV .Q10H [facility] Last Admin: 11/03/17 06:13 Dose: 100 mls/hr Insulin Human Regular (Novolin R) 0 unit SC ACHS [facility] PRN Reason: Protocol Last Admin: 11/03/17 12:30 Dose: 1 unit Metoprolol Succinate (Toprol Xl) 100 mg PO DAILY [facility] Last Admin: 11/03/17 09:01 Dose: 100 mg Rosuvastatin Calcium (Crestor) 20 mg PO HS [facility] Last Admin: 11/02/17 21:14 Dose: 20 mg Sitagliptin Phosphate (Januvia) 100 mg PO DAILY [facility] Last Admin: 11/03/17 09:01 Dose: 100 mg - Labs Labs: 11/03/17 10:35 11/03/17 10:35 PT 14.3 SECONDS (9.7-12.2) H 11/01/17 07:27 INR 1.3 11/01/17 07:27 APTT 96 SECONDS (21-34) H 11/02/17 06:28 - Constitutional Appears: No Acute Distress - Head Exam Head Exam: NORMOCEPHALIC - Eye Exam Eye Exam: Normal appearance - Neck Exam Neck Exam: Normal Inspection - Respiratory Exam Respiratory Exam: Clear to Ausculation Bilateral - Cardiovascular Exam Cardiovascular Exam: REGULAR RHYTHM - GI/Abdominal Exam GI & Abdominal Exam: Soft - Extremities Exam Extremities Exam: Pedal Edema - Neurological Exam Neurological Exam: Alert, Oriented x3 Assessment and Plan - Assessment and Plan (Free Text) Plan: cr is 2.2.k is low.will ct hydration & watch.recheck labs.on eliquis.
[2017-11-03] MEDS ORDERED: Potassium Chloride 20 mEq ER Tab PO ONE (12:45)
[2017-11-03 19:15] LABS: ALBUMIN 3.1 g/dL (3.5-5.0); CALCIUM 8.7 mg/dl (8.6-10.4)
--- NOTE | 2017-11-03 20:04 | CP.PCM.PN ---
Subjective - Date & Time of Evaluation Date of Evaluation: 11/03/17 Time of Evaluation: 20:04 - Subjective Subjective: pt is seen and examined, follow up consult is dictated #[id number] Objective - Vital Signs/Intake and Output Vital Signs (last 24 hours): Temp Pulse Resp BP Pulse Ox 98.0 F 75 20 131/83 98 11/03/17 15:00 11/03/17 16:16 11/03/17 15:00 11/03/17 15:00 11/03/17 15:00 - Medications Medications: Current Medications Acetylcysteine (Acetylcysteine 20%) 8 ml PO Q12H [facility] Stop: 11/03/17 21:01 Last Admin: 11/03/17 09:00 Dose: 8 ml Apixaban (Eliquis) 10 mg PO Q12H [facility] Stop: 11/08/17 18:01 Last Admin: 11/03/17 17:07 Dose: 10 mg Aspirin (Aspirin Chewable) 81 mg PO DAILY [facility] Last Admin: 11/03/17 09:01 Dose: 81 mg Glimepiride (Amaryl) 2 mg PO ACB [facility] Last Admin: 11/03/17 06:38 Dose: 2 mg Sodium Chloride (Sodium Chloride 0.9%) 1,000 mls @ 100 mls/hr IV .Q10H [facility] Last Admin: 11/03/17 16:02 Dose: 100 mls/hr Insulin Human Regular (Novolin R) 0 unit SC ACHS [facility] PRN Reason: Protocol Last Admin: 11/03/17 17:06 Dose: 1 unit Metoprolol Succinate (Toprol Xl) 100 mg PO DAILY [facility] Last Admin: 11/03/17 09:01 Dose: 100 mg Rosuvastatin Calcium (Crestor) 20 mg PO HS [facility] Last Admin: 11/02/17 21:14 Dose: 20 mg Sitagliptin Phosphate (Januvia) 50 mg PO DAILY [facility] - Labs Labs: 11/03/17 10:35 11/03/17 18:58 PT 14.3 SECONDS (9.7-12.2) H 11/01/17 07:27 INR 1.3 11/01/17 07:27 APTT 96 SECONDS (21-34) H 11/02/17 06:28
[2017-11-04] MEDS: Sodium Chloride 0.9% 1,000 ML IV SCH ×3 (02:00→21:23)
--- NOTE | 2017-11-04 03:33 | PN ---
DATE: 11/03/2017 FOLLOWUP RENAL CONSULTATION LOCATION: The patient is located in room 653, bed B. REQUESTED BY: Ramos Willingham MD REASON FOR FOLLOWUP: Acute renal failure. HISTORY OF PRESENT ILLNESS: Mr. Solorio is a 62 years old elderly male with a history of longstanding hypertension, diabetes, hyperlipidemia, EtOH abuse who was admitted with chief complaints of swelling of the right leg and found to have a DVT of the right femoral vein and common femoral vein. Subsequently, the patient underwent a thrombolysis and also inferior vena cava filter placement, and status post abdominal aortogram. The patient was found to have worsening renal function after the contrast yesterday. Creatinine went up to 1.9, and now today, creatinine is 2.5. The patient is not in acute distress. Denies any headache, dizziness. Denies any chest pain or palpitation. Denies any fever or cough. No abdominal pain. No nausea, vomiting, diarrhea, decreasing leg swelling. PHYSICAL EXAMINATION: VITAL SIGNS: As follows, blood pressure 131/83, pulse 77, respirations 20, temperature 98, saturation 98%. Height 5 feet 9 inches, weight is 152 pounds. GENERAL: Mr. Solorio is 62 years old male, moderately built, moderately nourished, not in distress. HEENT: Pupils normal and reactive to light and accommodation. Conjunctivae pink. Sclerae nonicteric. Tongue is moist. Trachea is midline. LUNGS: Symmetric on both sides. Bilateral breath sounds present. Clear to auscultation. CVS: [place] at the fifth intercostal space, midclavicular line. S1, S2 audible. No murmur or gallop. ABDOMEN: Normal in appearance, soft, tympanic. No guarding. No rigidity. No hepatosplenomegaly. GAUGE OPERATOR: The patient is alert, awake, oriented x3. Nonfocal neuro examination. Cranial nerves II through XII grossly intact. Sensory and motor system is within normal limits. EXTREMITIES: No cyanosis, no clubbing, no edema on the left side. The patient has a slight swelling of the right leg. MEDICATIONS: His current medications include as follows: Amaryl 2 mg p.o. a.c.b., aspirin 81 mg daily, Crestor 20 mg p.o. at bedtime, Eliquis 10 mg p.o. every 12 hours, Januvia 50 mg p.o. daily, Novolin R for sliding scale, normal saline IV fluids 100 mL/hour, metoprolol 100 mg p.o. daily. LABORATORY DATA: His lab data include as follows, as of 11/03/2017, WBC 8.3, hemoglobin 12.7, hematocrit is 35.5, platelets 223. Sodium 142, potassium 3.3, chloride 110, CO2 of 24, BUN 22, creatinine 2.2, glucose 176, calcium 8.3. Total bili 0.7, AST 54, ALT 21, alkaline phos is 55, total protein 5.6, albumin is 2.8. As of 11/03/2017, sodium 147, potassium 3.9, chloride 110, CO2 of 28, BUN 22, creatinine 2.5, glucose 149, calcium 8.7. Total bili 0.7, AST 47, ALT 23, alkaline phosphatase 62, total protein 6.1, albumin 3.1. IMPRESSION: In summary, Mr. Solorio is a 62 years old elderly male with hypertension, diabetes, hyperlipidemia, coronary artery disease, cerebrovascular accident who was admitted with the right lower extremity deep venous thrombosis in the common femoral vein and femoral vein, status post thrombolysis and IVC filter placement on 11/01/2017 with increasing serum creatinine after the contrast. 1. Nonoliguric acute renal failure secondary to acute tubular necrosis secondary to contrast induced nephropathy. 2. Hypertension. Blood pressure is stable. Continue his current medication. 3. Diabetes. Sugars are under control. 4. Right lower extremity deep venous thrombosis, status post thrombolysis and IVC filter placement. Continue to monitor renal function. Continue IV fluids. We will follow with you. Thank you for allowing me to participate in your patient's care. Case discussed with Dr. Ramos Willingham in rounds. We will repeat BMP in a.m. Bradley Osei MD
[2017-11-04 06:26] LABS: BASO # 0.1 K/uL (0.0-0.2); BASO % 0.9 % (0.0-2.0); EOS # 1.2 K/uL (0.0-0.7); HEMOGLOBIN 12.7 g/dL (12.0-18.0); LYMPH # 1.6 K/uL (1.0-4.3); MEAN CELL VOLUME 80.5 fL (80.0-94.0); MEAN CORPUSCULAR HEMOGLOBIN 28.3 pg (27.0-31.0); MEAN CORPUSCULAR HGB CONC 35.1 g/dL (33.0-37.0); MEAN PLATELET VOLUME 8.4 fL (7.2-11.7); MONO # 0.8 K/uL (0.0-0.8); MONO % 8.4 % (0.0-10.0); NEUT % 61.7 % (50.0-75.0); RBC 4.48 Mil/uL (4.40-5.90); RED CELL DISTRIBUTION WIDTH 13.3 % (11.5-14.5); WHITE BLOOD COUNT 9.6 K/uL (4.8-10.8)
[2017-11-04 07:50] LABS: ALB/GLOB RATIO 0.9 (1.0-2.1); ALBUMIN 2.8 g/dL (3.5-5.0); CALCIUM 8.3 mg/dl (8.6-10.4)
[2017-11-04] MEDS: (Novolin R) Insulin Human Regular 100 units/ml vial SC SCH ×4 (08:24→21:24)
[2017-11-04] MEDS: Metoprolol Succinate 100 mg XL Tab PO SCH (09:37)
--- NOTE | 2017-11-04 14:09 | CP.PCM.PN ---
Subjective - Date & Time of Evaluation Date of Evaluation: 11/04/17 Time of Evaluation: 14:08 - Subjective Subjective: pt is seen and examined, follow up consult is dictated #[id number] bmp in am change ivf 1/2 ns at 70 ml/hr Objective - Vital Signs/Intake and Output Vital Signs (last 24 hours): Temp Pulse Resp BP Pulse Ox 98.5 F 78 18 163/87 H 98 11/04/17 07:00 11/04/17 08:00 11/04/17 07:00 11/04/17 07:00 11/04/17 07:00 Intake and Output: 11/04/17 11/04/17 06:59 18:59 Intake Total 1400 Output Total 400 Balance 1000 - Medications Medications: Current Medications Apixaban (Eliquis) 10 mg PO Q12H [facility] Stop: 11/08/17 18:01 Last Admin: 11/04/17 05:46 Dose: 10 mg Aspirin (Aspirin Chewable) 81 mg PO DAILY [facility] Last Admin: 11/04/17 09:36 Dose: 81 mg Glimepiride (Amaryl) 2 mg PO ACB [facility] Last Admin: 11/04/17 08:45 Dose: 2 mg Sodium Chloride (Sodium Chloride 0.9%) 1,000 mls @ 100 mls/hr IV .Q10H [facility] Last Admin: 11/04/17 12:37 Dose: 100 mls/hr Insulin Human Regular (Novolin R) 0 unit SC ACHS [facility] PRN Reason: Protocol Last Admin: 11/04/17 12:34 Dose: 2 unit Metoprolol Succinate (Toprol Xl) 100 mg PO DAILY [facility] Last Admin: 11/04/17 09:37 Dose: 100 mg Rosuvastatin Calcium (Crestor) 20 mg PO HS [facility] Last Admin: 11/03/17 21:45 Dose: 20 mg Sitagliptin Phosphate (Januvia) 50 mg PO DAILY [facility] Last Admin: 11/04/17 12:36 Dose: 50 mg - Labs Labs: 11/04/17 06:16 11/04/17 06:16 PT 14.3 SECONDS (9.7-12.2) H 11/01/17 07:27 INR 1.3 11/01/17 07:27 APTT 96 SECONDS (21-34) H 11/02/17 06:28
[2017-11-04] MEDS ORDERED: Potassium Chloride 20 mEq ER Tab PO ONE (14:12)
--- NOTE | 2017-11-04 14:30 | CP.PCM.PN ---
Subjective - Date & Time of Evaluation Date of Evaluation: 11/04/17 Time of Evaluation: 14:28 - Subjective Subjective: feels fine. Objective - Vital Signs/Intake and Output Vital Signs (last 24 hours): Temp Pulse Resp BP Pulse Ox 98.5 F 78 18 163/87 H 98 11/04/17 07:00 11/04/17 08:00 11/04/17 07:00 11/04/17 07:00 11/04/17 07:00 Intake and Output: 11/04/17 11/04/17 06:59 18:59 Intake Total 1400 Output Total 400 Balance 1000 - Medications Medications: Current Medications Apixaban (Eliquis) 10 mg PO Q12H [facility] Stop: 11/08/17 18:01 Last Admin: 11/04/17 05:46 Dose: 10 mg Aspirin (Aspirin Chewable) 81 mg PO DAILY [facility] Last Admin: 11/04/17 09:36 Dose: 81 mg Glimepiride (Amaryl) 2 mg PO ACB [facility] Last Admin: 11/04/17 08:45 Dose: 2 mg Sodium Chloride (Sodium Chloride 0.9%) 1,000 mls @ 100 mls/hr IV .Q10H [facility] Last Admin: 11/04/17 12:37 Dose: 100 mls/hr Insulin Human Regular (Novolin R) 0 unit SC ACHS [facility] PRN Reason: Protocol Last Admin: 11/04/17 12:34 Dose: 2 unit Metoprolol Succinate (Toprol Xl) 100 mg PO DAILY [facility] Last Admin: 11/04/17 09:37 Dose: 100 mg Rosuvastatin Calcium (Crestor) 20 mg PO HS [facility] Last Admin: 11/03/17 21:45 Dose: 20 mg Sitagliptin Phosphate (Januvia) 50 mg PO DAILY [facility] Last Admin: 11/04/17 12:36 Dose: 50 mg - Labs Labs: 11/04/17 06:16 11/04/17 06:16 PT 14.3 SECONDS (9.7-12.2) H 11/01/17 07:27 INR 1.3 11/01/17 07:27 APTT 96 SECONDS (21-34) H 11/02/17 06:28 - Constitutional Appears: No Acute Distress - Head Exam Head Exam: NORMOCEPHALIC - Eye Exam Eye Exam: Normal appearance - Respiratory Exam Respiratory Exam: Clear to Ausculation Bilateral - Cardiovascular Exam Cardiovascular Exam: REGULAR RHYTHM - GI/Abdominal Exam GI & Abdominal Exam: Soft - Extremities Exam Extremities Exam: absent: Pedal Edema - Neurological Exam Neurological Exam: Alert, Oriented x3 Assessment and Plan - Assessment and Plan (Free Text) Assessment: s/p filter placement for dvt.julissa.dm,cad,diffuse athgerosclerosis.cr is stable now. will ct iv hydration & hopefully d/c monday. care of plan explained to pt & her daughter.
[2017-11-04] MEDS: Sodium Chloride 0.45% 1,000 ML IV SCH (22:10)
--- NOTE | 2017-11-05 02:34 | PN ---
DATE: 11/04/2017 FOLLOWUP RENAL CONSULTATION The patient is located in room 563, bed B. REQUESTED BY: Ramos Willingham MD REASON FOR FOLLOWUP: Acute renal failure for further evaluation and contrast-induced nephropathy. SUBJECTIVE: Mr. Solorio is a 62-year-old elderly male with a past medical history significant for longstanding hypertension, diabetes, coronary artery disease, status post stent, CVA, who was admitted with the chief complaint of right leg swelling and pain since 10/22/2017, and subsequently the patient went and saw Dr. Ramos Willingham, suspected to have DVT and admitted through the emergency room and found to be positive for DVT in the right leg and right femoral vein and common femoral vein. Subsequently, the patient underwent an aortogram and also status post lysis of the clots and underwent inferior vena cava filter placement. Subsequently, the patient was found to have worsening renal function after the contrast. The patient is not in acute distress. Denies any chest pain or palpitations. Denies any fever or cough. No abdominal pain. No nausea, vomiting, diarrhea, decreasing swelling of the right leg and the patient has now elastic stockings, not in acute distress. PHYSICAL EXAMINATION: VITAL SIGNS: As follows: Blood pressure 156/80, pulse 73, respirations 18, temperature 98, saturation 98%. Height 5 feet 9 inches, and weight is 152 pounds. GENERAL: Mr. Solorio is a 62-year-old elderly male, moderately built, moderately nourished, not in acute distress. HEENT: Pupils normal and reactive to light and accommodation. Conjunctivae pink. Sclerae anicteric. Tongue is moist. NECK: Trachea is midline. LUNGS: Symmetric on both sides. Bilateral breath sounds present. Clear to auscultation. CVS: [place] at the fifth intercostal space, midclavicular line. S1, S2 audible. No murmur or gallop. ABDOMEN: Normal in appearance, soft, tympanic. No guarding. No rigidity. No hepatosplenomegaly. EMT: The patient is alert, awake, and oriented x3. Nonfocal neuro examination. Cranial nerves II through XII grossly intact. Sensory and motor system is within normal limits. EXTREMITIES: No cyanosis, no clubbing, no edema. Less swelling of the right leg now. CURRENT MEDICATIONS: Include as follows: Amaryl 2 mg p.o. before breakfast, aspirin 81 mg daily, Crestor 20 mg p.o. at bedtime, Eliquis 10 mg p.o. every 12 hours, Januvia 50 mg p.o. daily, Humulin R for sliding scale, normal saline, IV fluids 100 mL/hour, and metoprolol 50 mg p.o. daily. LABORATORY DATA: Includes as follows: As of 11/04/2017, WBC 9.6, hemoglobin 12.7, hematocrit is 36, platelets 247. Sodium 147, potassium 3.5, chloride 112, CO2 25, BUN 19, creatinine 2.5, glucose is 95, calcium 8.3. Total bili 0.5, AST 38, ALT 26, alkaline phosphatase 55, total protein 5.8, albumin is 2.8. ASSESSMENT AND PLAN: In summary, Mr. Solorio is a 62-year-old elderly male with hypertension, diabetes, coronary artery disease, status post stent, and cerebrovascular accident, was admitted with right leg swelling and pain. CT angiogram consistent with right common femoral vein thrombosis, status post thrombolysis and also status post inferior vena cava filter placement with increased BUN and creatinine, status post CT angiogram of the abdomen and pelvis with contrast on 10/30/2017. 1. Nonoliguric acute renal failure, most likely secondary to acute tubular necrosis, secondary to contrast-induced nephropathy, serum creatinine reaching it seems peak and plateauing at this time and continue to monitor basic metabolic panel and we will change intravenous fluids to half-normal saline at 70 mL/hour. 2. Hypertension, blood pressure is stable. 3. Status post deep venous thrombosis and lysis of the thrombus in the right common femoral vein. Continue anticoagulation as per Dr. Ramos Willingham. 4. Diabetes. Sugars are under control. Continue Amaryl. Repeat basic metabolic panel in a.m. Case discussed with Dr. Ramos Willingham in rounds, and also the patient's at bedside. We will follow with you. Thank you for allowing me to participate in your patient's care and to avoid nephrotoxic agents. Bradley Osei MD
[2017-11-05] MEDS: (Novolin R) Insulin Human Regular 100 units/ml vial SC SCH ×4 (07:35→22:52)
[2017-11-05] MEDS: Metoprolol Succinate 100 mg XL Tab PO SCH (09:03)
[2017-11-05 11:43] LABS: CALCIUM 8.9 mg/dl (8.6-10.4)
[2017-11-05] MEDS: Sodium Chloride 0.45% 1,000 ML IV SCH (13:00)
--- NOTE | 2017-11-05 14:19 | CP.PCM.PN ---
Subjective - Date & Time of Evaluation Date of Evaluation: 11/05/17 Time of Evaluation: 14:19 - Subjective Subjective: pt is seen and examined, follow up consult is dictated #[id number] Objective - Vital Signs/Intake and Output Vital Signs (last 24 hours): Temp Pulse Resp BP Pulse Ox 98.0 F 66 20 138/81 97 11/05/17 07:35 11/05/17 08:01 11/05/17 07:35 11/05/17 07:35 11/05/17 07:35 Intake and Output: 11/05/17 11/05/17 06:59 18:59 Intake Total 1170 Output Total 200 300 Balance 970 -300 - Medications Medications: Current Medications Apixaban (Eliquis) 10 mg PO Q12H [facility] Stop: 11/08/17 18:01 Last Admin: 11/05/17 06:38 Dose: 10 mg Aspirin (Aspirin Chewable) 81 mg PO DAILY [facility] Last Admin: 11/05/17 09:03 Dose: 81 mg Glimepiride (Amaryl) 2 mg PO ACB [facility] Last Admin: 11/05/17 08:02 Dose: 2 mg Sodium Chloride (Sodium Chloride 0.45%) 1,000 mls @ 70 mls/hr IV .[id number] [facility] Insulin Human Regular (Novolin R) 0 unit SC ACHS [facility] PRN Reason: Protocol Last Admin: 11/05/17 12:29 Dose: 1 unit Metoprolol Succinate (Toprol Xl) 100 mg PO DAILY [facility] Last Admin: 11/05/17 09:03 Dose: 100 mg Rosuvastatin Calcium (Crestor) 20 mg PO HS [facility] Last Admin: 11/04/17 21:23 Dose: 20 mg Sitagliptin Phosphate (Januvia) 50 mg PO DAILY [facility] Last Admin: 11/05/17 09:03 Dose: 50 mg - Labs Labs: 11/04/17 06:16 11/05/17 11:24 PT 14.3 SECONDS (9.7-12.2) H 11/01/17 07:27 INR 1.3 11/01/17 07:27 APTT 96 SECONDS (21-34) H 11/02/17 06:28
[2017-11-06] MEDS: Sodium Chloride 0.45% 1,000 ML IV SCH ×4 (02:36→18:50)
[2017-11-06 06:56] LABS: HEMOGLOBIN 12.1 g/dL (12.0-18.0); MEAN CELL VOLUME 79.7 fL (80.0-94.0); MEAN CORPUSCULAR HEMOGLOBIN 28.9 pg (27.0-31.0); MEAN CORPUSCULAR HGB CONC 36.2 g/dL (33.0-37.0); MEAN PLATELET VOLUME 8.9 fL (7.2-11.7); RBC 4.2 Mil/uL (4.40-5.90); RED CELL DISTRIBUTION WIDTH 13.2 % (11.5-14.5); WHITE BLOOD COUNT 11.2 K/uL (4.8-10.8)
[2017-11-06 07:06] LABS: CALCIUM 8.9 mg/dl (8.6-10.4)
--- NOTE | 2017-11-06 07:07 | PN ---
DATE: 11/05/2017. LOCATION: Room 563, bed B. REQUESTED BY: Dr. Ramos Willingham. REASON FOR FOLLOWUP: Acute renal failure, contrast nephropathy. HISTORY OF PRESENT ILLNESS: Mr. Solorio is a 62 years old elderly male with a past medical history significant for longstanding hypertension, diabetes, coronary artery disease status post stent and CVA, who was admitted with severe pain in the right lower extremity since 10/22/2017. The patient went to Dr. Ramos Willingham's office on 10/27/2017, the patient was suspected to have a DVT and referred to the emergency room and admitted positive for DVT. Subsequently, the patient underwent CT angiogram and also thrombolysis of the right femoral vein and common femoral vein thrombus, subsequently, the patient also had inferior vena cava filter placement on 11/02/2017, since then the patient was found to have increased BUN and creatinine. The patient denies any chest pain or palpitation. Denies any fever or cough. No abdominal pain. No nausea, vomiting, diarrhea. Decreasing right leg swelling. The patient has an elastic stockings, not in distress. PHYSICAL EXAMINATION: VITAL SIGNS: Blood pressure 127/77, pulse 66, respirations 20, temperature 97.9, saturation 99%. Height 5 feet 9 inches, weight is 152 pounds. GENERAL: Mr. Solorio is a 62 years old male , moderately built, moderately nourished, not in distress. HEENT: Pupils normal, react to light and accommodation. Conjunctivae pink. Sclerae anicteric. The tongue is moist. Trachea is midline. LUNGS: Symmetric on both sides. Bilateral breath sounds present. Clear to auscultation. CVS: [place] at the fifth intercostal space, midclavicular line. S1 and S2 audible. No murmur or gallop. ABDOMEN: Normal in appearance, soft, tympanic. No guarding, no rigidity. No hepatosplenomegaly. TESTER COMPRESSED GASES: The patient is alert, awake, oriented x3. Nonfocal neuro examination. Cranial nerves II through XII grossly intact. Sensory and motor system is within normal limits. EXTREMITIES: No cyanosis, no clubbing. Slight swelling of the right leg present which is improving. CURRENT MEDICATIONS: Glimepiride 2 mg p.o. a.c.b., aspirin 81 mg daily, Crestor 20 mg p.o. at bedtime, Eliquis 10 mg p.o. every 12 hours, Januvia 50 mg p.o. daily, Novolin R for sliding scale, IV fluids half-normal saline at 70 mL/hour, metoprolol 100 mg p.o. daily. LABORATORY DATA: As of 11/05/2017, sodium 145, potassium 3.7, chloride 110, CO2 24, BUN 18, creatinine 2.6 and glucose 179, calcium 8.9. ASSESSMENT: In summary, Mr. Solorio is a 62 years old elderly Japanese male with history of hypertension, diabetes, coronary artery disease status post stent, cerebrovascular accident with right lower extremity deep vein thrombosis status post thrombolysis and CT angiogram with contrast on 11/02 with worsening BUN and creatinine. 1. Acute renal failure, nonoliguric, most likely acute tubular necrosis secondary to contrast induced nephropathy. 2. Hypertension. Blood pressure is stable. Continue his current medication, metoprolol 100 mg p.o. daily. 3. Diabetes. Continue glimepiride and Januvia and sugars are under control. 4. Deep vein thrombosis status post thrombolysis and inferior vena cava filter placement. Continue Eliquis as per Dr. Ramos Willingham. We will check CBC and BMP in a.m. If renal function starts improving, the patient may be discharged depending upon the blood test tomorrow. We will follow with you. Thank you for allowing me to participate in your patient's care. Bradley Osei MD
[2017-11-06] MEDS: (Novolin R) Insulin Human Regular 100 units/ml vial SC SCH ×4 (08:08→21:28)
[2017-11-06] MEDS: Metoprolol Succinate 100 mg XL Tab PO SCH (09:00)
--- NOTE | 2017-11-06 13:40 | CP.PCM.PN ---
Subjective - Date & Time of Evaluation Date of Evaluation: 11/06/17 Time of Evaluation: 13:39 - Subjective Subjective: feels fine.,labs noted & explained.cr is 2.7 Objective - Vital Signs/Intake and Output Vital Signs (last 24 hours): Temp Pulse Resp BP Pulse Ox 98.2 F 55 L 20 154/84 H 100 11/06/17 08:22 11/06/17 12:00 11/06/17 08:22 11/06/17 08:55 11/06/17 08:22 - Medications Medications: Current Medications Apixaban (Eliquis) 10 mg PO Q12H [facility] Stop: 11/08/17 18:01 Last Admin: 11/06/17 06:35 Dose: 10 mg Aspirin (Aspirin Chewable) 81 mg PO DAILY [facility] Last Admin: 11/06/17 09:00 Dose: 81 mg Glimepiride (Amaryl) 2 mg PO ACB [facility] Last Admin: 11/06/17 08:52 Dose: 2 mg Sodium Chloride (Sodium Chloride 0.45%) 1,000 mls @ 100 mls/hr IV .Q10H [facility] Last Admin: 11/06/17 11:30 Dose: Not Given Insulin Human Regular (Novolin R) 0 unit SC ACHS [facility] PRN Reason: Protocol Last Admin: 11/06/17 13:24 Dose: Not Given Metoprolol Succinate (Toprol Xl) 100 mg PO DAILY [facility] Last Admin: 11/06/17 09:00 Dose: 100 mg Rosuvastatin Calcium (Crestor) 20 mg PO HS [facility] Last Admin: 11/05/17 21:47 Dose: 20 mg Sitagliptin Phosphate (Januvia) 50 mg PO DAILY [facility] Last Admin: 11/06/17 09:00 Dose: 50 mg - Labs Labs: 11/06/17 06:45 11/06/17 06:45 PT 14.3 SECONDS (9.7-12.2) H 11/01/17 07:27 INR 1.3 11/01/17 07:27 APTT 96 SECONDS (21-34) H 11/02/17 06:28 - Constitutional Appears: No Acute Distress - Eye Exam Eye Exam: Normal appearance - Neck Exam Neck Exam: Normal Inspection - Respiratory Exam Respiratory Exam: Clear to Ausculation Bilateral - Cardiovascular Exam Cardiovascular Exam: REGULAR RHYTHM - GI/Abdominal Exam GI & Abdominal Exam: Soft - Extremities Exam Extremities Exam: absent: Pedal Edema - Neurological Exam Neurological Exam: Alert, Oriented x3 Assessment and Plan - Assessment and Plan (Free Text) Plan: julissa.cr still 2.7.will ct iv hydration.diss with pt & dr rdz.
--- NOTE | 2017-11-06 20:10 | CP.PCM.PN ---
Subjective - Date & Time of Evaluation Date of Evaluation: 11/06/17 Time of Evaluation: 20:10 - Subjective Subjective: pt is seen and examined, follow up consult is dictated #[id number] bmp in am Objective - Vital Signs/Intake and Output Vital Signs (last 24 hours): Temp Pulse Resp BP Pulse Ox 97.3 F L 68 20 146/79 100 11/06/17 15:00 11/06/17 15:00 11/06/17 15:00 11/06/17 15:00 11/06/17 15:00 Intake and Output: 11/06/17 11/07/17 18:59 06:59 Intake Total 940 Output Total 300 Balance 640 - Medications Medications: Current Medications Apixaban (Eliquis) 10 mg PO Q12H [facility] Stop: 11/08/17 18:01 Last Admin: 11/06/17 17:01 Dose: 10 mg Aspirin (Aspirin Chewable) 81 mg PO DAILY [facility] Last Admin: 11/06/17 09:00 Dose: 81 mg Glimepiride (Amaryl) 2 mg PO ACB [facility] Last Admin: 11/06/17 08:52 Dose: 2 mg Sodium Chloride (Sodium Chloride 0.45%) 1,000 mls @ 100 mls/hr IV .Q10H [facility] Last Admin: 11/06/17 18:50 Dose: Not Given Insulin Human Regular (Novolin R) 0 unit SC ACHS [facility] PRN Reason: Protocol Last Admin: 11/06/17 16:33 Dose: Not Given Metoprolol Succinate (Toprol Xl) 100 mg PO DAILY [facility] Last Admin: 11/06/17 09:00 Dose: 100 mg Rosuvastatin Calcium (Crestor) 20 mg PO HS [facility] Last Admin: 11/05/17 21:47 Dose: 20 mg Sitagliptin Phosphate (Januvia) 50 mg PO DAILY [facility] Last Admin: 11/06/17 09:00 Dose: 50 mg - Labs Labs: 11/06/17 06:45 11/06/17 06:45 PT 14.3 SECONDS (9.7-12.2) H 11/01/17 07:27 INR 1.3 11/01/17 07:27 APTT 96 SECONDS (21-34) H 11/02/17 06:28
[2017-11-07] MEDS: Sodium Chloride 0.45% 1,000 ML IV SCH ×3 (02:33→21:13)
--- NOTE | 2017-11-07 02:59 | PN ---
DATE: 11/06/2017 FOLLOWUP RENAL CONSULTATION LOCATION: The patient is located in room 563, bed B. REQUESTED BY: Ramos Willingham MD REASON FOR RENAL CONSULTATION: Acute renal failure. HISTORY OF PRESENT ILLNESS: Mr. Solorio is a 62 years elderly male with a past medical history significant for longstanding hypertension, diabetes, coronary artery disease, status post stents, and CVA who was admitted with right lower extremity pain and swelling, and found to have a DVT in the right common femoral vein and femoral vein. Subsequently, the patient underwent a thrombolysis, and IVC filter placement, status post CT angiogram. Subsequently, patient also had acute renal failure. The patient is on IV hydration. The patient is not in acute distress. Denies any chest pain or palpitation. Denies any fever or cough. No abdominal pain. No nausea, vomiting, diarrhea. The patient has a good urine output. PHYSICAL EXAMINATION: VITAL SIGNS: As follows, blood pressure 146/79, pulse 68, respirations 20, temperature 97.3, saturation 100%. Height 5 feet 9 inches, weight is 152 pounds. GENERAL: Mr. Solorio is a 62 years old elderly male, moderately built, moderately nourished, not in distress. HEENT: Pupils normal and reactive to light and accommodation. Conjunctivae pink. Sclerae anicteric. Tongue is moist. Trachea is midline. LUNGS: Symmetric on both sides. Bilateral breath sounds present. Clear to auscultation. CVS: [place] at the fifth intercostal space, midclavicular line. S1, S2 audible. No murmur. No gallop. ABDOMEN: Normal in appearance, soft, tympanic. No guarding. No rigidity. No hepatosplenomegaly. SENIOR LIVING ADVISOR: The patient is alert, awake, and oriented x3. Nonfocal neuro examination. Cranial nerves II through XII grossly intact. Sensory and motor system is within normal limits. EXTREMITIES: No cyanosis, no cyanosis, no edema. MEDICATIONS: His current medications include as follows, glimepiride 2 mg p.o. a.c.b., aspirin 81 mg daily, Crestor 20 mg p.o. at bedtime, Eliquis 2.5 mg p.o. b.i.d., Januvia 50 mg p.o. daily, sodium chloride, half normal saline IV fluids at 100 mL/hour, and metoprolol 100 mg p.o. daily. LABORATORY DATA: Include as follows, as of 11/06/2017, WBC 11.2, hemoglobin 12.1, hematocrit is 33.5, platelets 259. Sodium 144, potassium 3.9, chloride 111, CO2 of 24, BUN 18, creatinine 2.7, and glucose 101, calcium 8.9. IMPRESSION: In summary, Mr. Solorio is a 62 years old elderly male with history of hypertension, diabetes, coronary artery disease, cerebrovascular accident with right lower extremity deep venous thrombosis, status post thrombolysis, status post IVC filter, and CT angiogram with increased BUN and creatinine. 1. Nonoliguric acute renal failure, most likely secondary to acute tubular necrosis, secondary to contrast-induced nephropathy. 2. Hypertension. Blood pressure is stable. 3. Deep venous thrombosis, status post thrombolysis and IVC filter placement. Continue Eliquis as per Dr. Ramos Willingham. Continue to monitor BMP in a.m. We will check urine lytes, osmolality, and urine for eosinophils in a.m. We will follow with you. Thank you for allowing me to participate in your patient's care. Bradley Osei MD
[2017-11-07] MEDS: (Novolin R) Insulin Human Regular 100 units/ml vial SC SCH ×4 (08:02→21:24)
[2017-11-07 08:21] LABS: BASO # 0.1 K/uL (0.0-0.2); BASO % 1.2 % (0.0-2.0); EOS # 1.2 K/uL (0.0-0.7); EOS % 12.9 % (0.0-4.0); HEMOGLOBIN 12.3 g/dL (12.0-18.0); LYMPH # 1.5 K/uL (1.0-4.3); LYMPH % 16.4 % (20.0-40.0); MEAN CELL VOLUME 79.4 fL (80.0-94.0); MEAN CORPUSCULAR HEMOGLOBIN 28.3 pg (27.0-31.0); MEAN CORPUSCULAR HGB CONC 35.7 g/dL (33.0-37.0); MEAN PLATELET VOLUME 9.4 fL (7.2-11.7); MONO # 0.8 K/uL (0.0-0.8); NEUT # 5.8 K/uL (1.8-7.0); NEUT % 61.5 % (50.0-75.0); NRBC % 0.1 % (0.0-2.0); RBC 4.33 Mil/uL (4.40-5.90); RED CELL DISTRIBUTION WIDTH 13.5 % (11.5-14.5); WHITE BLOOD COUNT 9.4 K/uL (4.8-10.8)
[2017-11-07 08:40] LABS: ALBUMIN 3.1 g/dL (3.5-5.0); CALCIUM 8.5 mg/dl (8.6-10.4)
--- NOTE | 2017-11-07 09:15 | CP.PCM.PN ---
Subjective - Date & Time of Evaluation Date of Evaluation: 11/07/17 Time of Evaluation: 09:14 - Subjective Subjective: pt is seen and examined, follow up consult is dictated # julissa r/o atn sec to Contrast induced nephropathy vs AIN with very high eosinophils check u/a, lytes, urine eosinophils stain olga, anca, c3,c4, hept.b,c serology Objective - Vital Signs/Intake and Output Vital Signs (last 24 hours): Temp Pulse Resp BP Pulse Ox 98.4 F 71 18 170/86 H 98 11/07/17 07:00 11/07/17 07:00 11/07/17 07:00 11/07/17 07:00 11/07/17 07:00 Intake and Output: 11/07/17 11/07/17 06:59 18:59 Intake Total 1600 Output Total 3150 Balance -1550 - Medications Medications: Current Medications Apixaban (Eliquis) 5 mg PO BID [facility] Aspirin (Aspirin Chewable) 81 mg PO DAILY [facility] Last Admin: 11/06/17 09:00 Dose: 81 mg Glimepiride (Amaryl) 2 mg PO ACB [facility] Last Admin: 11/07/17 09:09 Dose: 2 mg Sodium Chloride (Sodium Chloride 0.45%) 1,000 mls @ 100 mls/hr IV .Q10H [facility] Last Admin: 11/07/17 02:33 Dose: 100 mls/hr Insulin Human Regular (Novolin R) 0 unit SC ACHS [facility] PRN Reason: Protocol Last Admin: 11/07/17 08:02 Dose: Not Given Metoprolol Succinate (Toprol Xl) 100 mg PO DAILY [facility] Last Admin: 11/06/17 09:00 Dose: 100 mg Rosuvastatin Calcium (Crestor) 20 mg PO HS [facility] Last Admin: 11/06/17 21:32 Dose: 20 mg Sitagliptin Phosphate (Januvia) 50 mg PO DAILY [facility] Last Admin: 11/06/17 09:00 Dose: 50 mg - Labs Labs: 11/07/17 08:13 11/07/17 08:13 PT 14.3 SECONDS (9.7-12.2) H 11/01/17 07:27 INR 1.3 11/01/17 07:27 APTT 96 SECONDS (21-34) H 11/02/17 06:28
[2017-11-07] MEDS ORDERED: Potassium Chloride 20 mEq ER Tab PO ONE (10:45)
[2017-11-07] MEDS: Metoprolol Succinate 100 mg XL Tab PO SCH (10:51)
--- NOTE | 2017-11-07 12:29 | CP.PCM.PN ---
Subjective - Date & Time of Evaluation Date of Evaluation: 11/07/17 Time of Evaluation: 12:26 - Subjective Subjective: feels fine.labs noted, Objective - Vital Signs/Intake and Output Vital Signs (last 24 hours): Temp Pulse Resp BP Pulse Ox 98.4 F 71 18 170/86 H 98 11/07/17 07:00 11/07/17 07:00 11/07/17 07:00 11/07/17 07:00 11/07/17 07:00 Intake and Output: 11/07/17 11/07/17 06:59 18:59 Intake Total 1600 Output Total 3150 Balance -1550 - Medications Medications: Current Medications Apixaban (Eliquis) 5 mg PO BID [facility] Last Admin: 11/07/17 10:51 Dose: 5 mg Aspirin (Aspirin Chewable) 81 mg PO DAILY [facility] Last Admin: 11/07/17 10:51 Dose: 81 mg Glimepiride (Amaryl) 2 mg PO ACB [facility] Last Admin: 11/07/17 09:09 Dose: 2 mg Sodium Chloride (Sodium Chloride 0.45%) 1,000 mls @ 100 mls/hr IV .Q10H [facility] Last Admin: 11/07/17 10:50 Dose: 100 mls/hr Insulin Human Regular (Novolin R) 0 unit SC ACHS [facility] PRN Reason: Protocol Last Admin: 11/07/17 08:02 Dose: Not Given Metoprolol Succinate (Toprol Xl) 100 mg PO DAILY [facility] Last Admin: 11/07/17 10:51 Dose: 100 mg Rosuvastatin Calcium (Crestor) 20 mg PO HS [facility] Last Admin: 11/06/17 21:32 Dose: 20 mg Sitagliptin Phosphate (Januvia) 50 mg PO DAILY [facility] Last Admin: 11/07/17 10:51 Dose: 50 mg - Labs Labs: 11/07/17 08:13 11/07/17 08:13 PT 14.3 SECONDS (9.7-12.2) H 11/01/17 07:27 INR 1.3 11/01/17 07:27 APTT 96 SECONDS (21-34) H 11/02/17 06:28 - Constitutional Appears: No Acute Distress - Head Exam Head Exam: NORMOCEPHALIC - Eye Exam Eye Exam: Normal appearance - ENT Exam ENT Exam: Mucous Membranes Moist - Neck Exam Neck Exam: Normal Inspection - Respiratory Exam Respiratory Exam: Clear to Ausculation Bilateral - Cardiovascular Exam Cardiovascular Exam: REGULAR RHYTHM - GI/Abdominal Exam GI & Abdominal Exam: Soft - Neurological Exam Neurological Exam: Alert, Oriented x3 Assessment and Plan - Assessment and Plan (Free Text) Plan: worsening of renal failure.pt asymptomatic.good urine output.diss with pts . diss with dr rdz.more labs ordered.ct iv hydration.
[2017-11-07 12:34] LABS: HEPATITIS B SURFACE AG Negative (NEGATIVE)
[2017-11-07 12:38] LABS: COMPLEMENT C4 62.7 mg/dL (14.0-44.0)
[2017-11-07 12:40] LABS: HEPATITIS A IGM NEGATIVE (NEGATIVE); HEPATITIS B CORE AB NEGATIVE (NEGATIVE)
--- NOTE | 2017-11-07 12:46 | PN ---
DATE: 11/07/2017 FOLLOWUP RENAL CONSULTATION The patient is located in room 563, bed B. REQUESTED BY: Ramos Willingham MD REASON FOR RENAL CONSULTATION: Acute renal failure, for further evaluation. SUBJECTIVE: Mr. Solorio is a 62-year-old elderly male with a past medical history significant for longstanding hypertension, diabetes, coronary artery disease, status post stents, CVA with no residual weakness. He was admitted with right lower extremity pain and swelling, started on 10/22/2017 and went to see Dr. Ramos Willingham on 10/27/2017 and admitted to hospital for suspected DVT. The patient was found to have a right lower extremity DVT with common femoral vein and right femoral vein thrombosis, requiring thrombolysis and IVC filter placement, status post CT angiogram. The patient was admitted with a normal serum creatinine 0.9, subsequently creatinine went up after angiogram, and suspected JOSE secondary to contrast-induced nephropathy and ATN. Serum creatinine continued to rise. Denies any complaints. The patient has a good urine output. No skin rash, no headache, no dizziness, no chest pain. no palpitations. No fever, no cough. No abdominal pain. No nausea, vomiting, or diarrhea. Less swelling in the right leg. PHYSICAL EXAMINATION: VITAL SIGNS: As follows: Blood pressure at this point 170/86, pulse 71, respirations 18, temperature 98.4, saturations 98%. Height 5 feet 9 inches, weight is 152 pounds. GENERAL: Mr. Solorio is a 62-year-old male, moderately built, moderately nourished, not in acute distress. HEENT: Pupils normal and reactive to light and accommodation. Conjunctivae pink. Sclerae anicteric. Tongue is moist. NECK: Trachea is midline. LUNGS: Symmetric on both sides. Bilateral breath sounds are present. Clear to auscultation. CVS: [place] at the fifth intercostal space of intermediate to midclavicular line. S1, S2 audible. No murmur or gallop. ABDOMEN: Normal in appearance, soft, tympanic. No guarding. No rigidity. No hepatosplenomegaly. ATTORNEY GENERAL: The patient is alert, awake, and oriented x3. Nonfocal neuro examination. Cranial nerves II through XII grossly intact. Sensory and motor system are within normal limits. EXTREMITIES: No cyanosis, no clubbing, no edema. The patient has elastic stockings to both legs. CURRENT MEDICATIONS: Include as follows: Glimepiride 2 mg p.o. before breakfast, aspirin 81 mg p.o. daily, Crestor 20 mg p.o. at bedtime, Eliquis 5 mg p.o. b.i.d., Januvia 50 mg p.o. daily, Novolin R for sliding scale, IV fluids half-normal saline 100 mL/hour, metoprolol 100 mg p.o. daily. LABORATORY DATA: Include as follows: As of 11/07/2017, WBC 9.4, hemoglobin 12.3, hematocrit is 34.4, platelets 252, neutrophils 61, lymph is 16.4, monos 8, eosinophils 12.9, eosinophils on admission on 10/27/2017 is 12.4%, on 10/31/2017 it is 10.3%, on 11/01/2017 it is 12.2%, and on 11/03/2017 it is 5.9%, on 11/04/2017 it is 12%, and on 11/07/2017 it is 12.9% and automated differential. Chem-7: Sodium 147, potassium 3.3, chloride 112, CO2 24, BUN 19, creatinine 3.1, glucose 80, calcium 8.5. Total bili 0.5, AST 30, ALT 23, alkaline phosphatase 74, total protein 6.2, albumin 3.1. ASSESSMENT AND PLAN: In summary, Mr. Solorio is a 62-year-old elderly male with history of hypertension, diabetes, coronary artery disease, status post stent, status post cerebrovascular accident, no residual weakness, ethanol abuse, with right lower extremity deep venous thrombosis, status post thrombolysis on 11/02/2017, and status post CT angiogram. On 10/30/2017 with worsening renal function and high serum eosinophils. 1. Acute renal failure, nonoliguric, most likely secondary to acute tubular necrosis, secondary to contrast-induced nephropathy, cannot rule out acute interstitial nephritis, rule out acute interstitial nephritis. 2. Hypertension. Blood pressure is slightly high and titrate his antihypertensive medication as per Dr. Ramos Willingham, calcium channel blockers at this time. 3. Diabetes. Sugars under control. 4. Rule out deep venous thrombosis, status post thrombolysis of the right leg, status post inferior vena cava filter. Continue Eliquis. We will check urinalysis, urine sodium, urine chloride, and also urine for eosinophils stain. We will check acute hepatitis serology, ROBYN, ANCA C3-C4. If renal function continued to deteriorates, may need kidney biopsy to rule out acute interstitial nephritis versus acute tubular necrosis. We will continue to monitor basic metabolic panel. We will follow with you. Thank you for allowing me to participate in your patient's care. Bradlye Osei MD MTDAdan
[2017-11-07 12:51] LABS: HEPATITIS C ANTIBODY NEGATIVE (NEGATIVE)
[2017-11-07 13:22] LABS: URINE BILIRUBIN NEGATIVE (NEGATIVE); URINE CLARITY Clear (Clear); URINE COLOR Colorless (YELLOW); URINE GLUCOSE (UA) 3+ mg/dL (Normal); URINE LEUKOCYTE ESTERASE NEG Leu/uL (Negative); URINE PROTEIN NEGATIVE (NEGATIVE); URINE UROBILINOGEN NORMAL mg/dL (0.2-1.0)
[2017-11-07 13:26] LABS: URINE BLOOD 1+ (NEGATIVE)
[2017-11-07] MEDS ORDERED: MethylPREDNISolone 40 mg Vial IVP STA (23:27)
[2017-11-08 07:41] LABS: BASO % 0.4 % (0.0-2.0); EOS % 0.1 % (0.0-4.0); HEMOGLOBIN 12.8 g/dL (12.0-18.0); LYMPH # 0.6 K/uL (1.0-4.3); LYMPH % 8.1 % (20.0-40.0); MEAN CELL VOLUME 79.9 fL (80.0-94.0); MEAN CORPUSCULAR HEMOGLOBIN 28.4 pg (27.0-31.0); MEAN CORPUSCULAR HGB CONC 35.6 g/dL (33.0-37.0); MEAN PLATELET VOLUME 9.3 fL (7.2-11.7); MONO # 0.1 K/uL (0.0-0.8); MONO % 1.2 % (0.0-10.0); NEUT # 6.2 K/uL (1.8-7.0); NEUT % 90.2 % (50.0-75.0); NRBC % 0.1 % (0.0-2.0); PLATELET COUNT 278 K/uL (130-400); RED CELL DISTRIBUTION WIDTH 13.4 % (11.5-14.5); WHITE BLOOD COUNT 6.9 K/uL (4.8-10.8)
[2017-11-08 07:54] LABS: ALB/GLOB RATIO 1.1 (1.0-2.1); ALBUMIN 3.4 g/dL (3.5-5.0); CALCIUM 8.8 mg/dl (8.6-10.4)
[2017-11-08 08:22] LABS: LARGE PLATELETS PRESENT; LYMPHOCYTE 5 % (20-40); MONOCYTE 1 % (0-10); NEUTROPHIL 94 % (50-75); PLATELET ESTIMATE NORMAL (NORMAL); TOTAL CELLS COUNTED 100
[2017-11-08] MEDS: (Novolin R) Insulin Human Regular 100 units/ml vial SC SCH ×4 (08:27→21:23)
[2017-11-08] MEDS ORDERED: Potassium Chloride 20 mEq ER Tab PO ONE (10:30)
[2017-11-08] MEDS: Metoprolol Succinate 100 mg XL Tab PO SCH (10:36)
[2017-11-08] MEDS: MethylPREDNISolone 40 mg Vial IV SCH ×2 (11:12→21:50)
--- NOTE | 2017-11-08 11:40 | CP.PCM.PN ---
Subjective - Date & Time of Evaluation Date of Evaluation: 11/08/17 Time of Evaluation: 11:38 - Subjective Subjective: feels fine.labs noted.echo noted.gladis.normal lv.normal size la,lv.mild con.lvh. Objective - Vital Signs/Intake and Output Vital Signs (last 24 hours): Temp Pulse Resp BP Pulse Ox 97.9 F 70 18 177/84 H 97 11/08/17 07:00 11/08/17 07:00 11/08/17 07:00 11/08/17 07:00 11/08/17 07:00 Intake and Output: 11/08/17 11/08/17 06:59 18:59 Intake Total 1400 Output Total 750 Balance 650 - Medications Medications: Current Medications Apixaban (Eliquis) 5 mg PO BID [facility] Last Admin: 11/08/17 10:36 Dose: 5 mg Aspirin (Aspirin Chewable) 81 mg PO DAILY [facility] Last Admin: 11/08/17 10:35 Dose: 81 mg Glimepiride (Amaryl) 2 mg PO ACB [facility] Last Admin: 11/08/17 08:35 Dose: 2 mg Sodium Chloride (Sodium Chloride 0.45%) 1,000 mls @ 100 mls/hr IV .Q10H [facility] Last Admin: 11/07/17 21:13 Dose: 100 mls/hr Insulin Human Regular (Novolin R) 0 unit SC ACHS [facility] PRN Reason: Protocol Last Admin: 11/08/17 08:27 Dose: 1 unit Methylprednisolone (Solu-Medrol) 40 mg IV Q12 [facility] Metoprolol Succinate (Toprol Xl) 100 mg PO DAILY [facility] Last Admin: 11/08/17 10:36 Dose: 100 mg Rosuvastatin Calcium (Crestor) 10 mg PO HS [facility] Last Admin: 11/07/17 21:11 Dose: 10 mg Sitagliptin Phosphate (Januvia) 25 mg PO DAILY [facility] Last Admin: 11/08/17 10:36 Dose: 25 mg - Labs Labs: 11/08/17 07:15 11/08/17 07:15 PT 14.3 SECONDS (9.7-12.2) H 11/01/17 07:27 INR 1.3 11/01/17 07:27 APTT 96 SECONDS (21-34) H 11/02/17 06:28 - Constitutional Appears: No Acute Distress - Eye Exam Eye Exam: Normal appearance - Neck Exam Neck Exam: Normal Inspection - Respiratory Exam Respiratory Exam: Clear to Ausculation Bilateral - Cardiovascular Exam Cardiovascular Exam: REGULAR RHYTHM - GI/Abdominal Exam GI & Abdominal Exam: Soft - Extremities Exam Extremities Exam: absent: Pedal Edema - Neurological Exam Neurological Exam: Alert, Oriented x3 Assessment and Plan - Assessment and Plan (Free Text) Plan: julissa.cr stable at 3.1.started on steroids.diss with family.gladis on echo.ct b blockers.
[2017-11-08] MEDS: Sodium Chloride 0.45% 1,000 ML IV SCH ×2 (11:45→21:51)
--- NOTE | 2017-11-08 12:58 | CARD ---
APPROVED REPORT EKG Measurement Heart [id number] <Conclusion> Normal sinus rhythm Low voltage QRS Anterolateral infarct, age undetermined Abnormal ECG
[2017-11-08 16:04] VITALS: RESP 20
--- NOTE | 2017-11-08 20:06 | CP.PCM.PN ---
Subjective - Date & Time of Evaluation Date of Evaluation: 11/08/17 Time of Evaluation: 20:05 - Subjective Subjective: pt is seen and examined, follow up consult is dictated #[id number] Objective - Vital Signs/Intake and Output Vital Signs (last 24 hours): Temp Pulse Resp BP Pulse Ox 97.6 F 67 20 138/76 95 11/08/17 15:00 11/08/17 15:00 11/08/17 15:00 11/08/17 15:00 11/08/17 15:00 Intake and Output: 11/08/17 11/09/17 18:59 06:59 Output Total 650 Balance -650 - Medications Medications: Current Medications Apixaban (Eliquis) 5 mg PO BID [facility] Last Admin: 11/08/17 18:19 Dose: 5 mg Aspirin (Aspirin Chewable) 81 mg PO DAILY [facility] Last Admin: 11/08/17 10:35 Dose: 81 mg Glimepiride (Amaryl) 2 mg PO ACB [facility] Last Admin: 11/08/17 08:35 Dose: 2 mg Sodium Chloride (Sodium Chloride 0.45%) 1,000 mls @ 100 mls/hr IV .Q10H [facility] Last Admin: 11/08/17 11:45 Dose: Not Given Insulin Human Regular (Novolin R) 0 unit SC ACHS [facility] PRN Reason: Protocol Last Admin: 11/08/17 18:20 Dose: 3 unit Methylprednisolone (Solu-Medrol) 40 mg IV Q12 [facility] Last Admin: 11/08/17 11:12 Dose: 40 mg Metoprolol Succinate (Toprol Xl) 100 mg PO DAILY [facility] Last Admin: 11/08/17 10:36 Dose: 100 mg Rosuvastatin Calcium (Crestor) 10 mg PO HS [facility] Last Admin: 11/07/17 21:11 Dose: 10 mg Sitagliptin Phosphate (Januvia) 25 mg PO DAILY [facility] Last Admin: 11/08/17 10:36 Dose: 25 mg - Labs Labs: 11/08/17 07:15 11/08/17 07:15 PT 14.3 SECONDS (9.7-12.2) H 11/01/17 07:27 INR 1.3 11/01/17 07:27 APTT 96 SECONDS (21-34) H 11/02/17 06:28
--- NOTE | 2017-11-09 03:24 | PN ---
DATE: 11/08/2017 LOCATION: The patient is located in room 563, bed B. REQUESTED BY: Ramos Willingham MD REASON FOR FOLLOWUP: Acute renal failure and for further evaluation. HISTORY OF PRESENT ILLNESS: Mr. Solorio is a 62-year-old elderly male with a history of longstanding hypertension, diabetes, coronary artery disease, hyperlipidemia, CVA, status post coronary stent who was admitted with right lower extremity pain and swelling, started on 10/22, now admitted to hospital on 10/27 for suspected DVT. The patient has DVT in the right femoral vein and common femoral vein, and subsequently, underwent thrombolysis and inferior vena cava filter placement, also the patient underwent CT angiogram. The hospital course was complicated by acute renal failure with worsening renal function of serum creatinine 3.1, and urine for eosinophils are also positive. He was started on IV Solu-Medrol . The patient is feeling better, not in acute distress and denies any headache or dizziness. Denies any chest pain or palpitation. Denies any fever or cough. No abdominal pain. No nausea, vomiting, or diarrhea. The patient has good urine output. PHYSICAL EXAMINATION: VITAL SIGNS: Are as follows. Blood pressure 138/76, pulse 67, respirations 20, temperature 97.6, saturations 95%, height 5 feet 9 inches, weight is 152 pounds. GENERAL: Mr. Solorio is a 62-year-old male, moderately built, moderately nourished, not in distress. HEENT: Pupils normal and reactive to light and accommodation. Conjunctivae pink. Sclerae anicteric. Tongue is moist. Trachea is midline. LUNGS: Symmetric on both sides. Bilateral breath sounds are present. Clear to auscultation. CVS: [place] at the fifth intercostal space, midclavicular line. S1, S2 audible. No murmur or gallop. ABDOMEN: Normal in appearance, soft, tympanic. No guarding. No rigidity. No hepatosplenomegaly. CLINICAL TRIALS SYSTEMS ADMINISTRATOR: The patient is alert, awake, and oriented x3. Nonfocal neuro examination. Cranial nerves II through XII grossly intact. Sensory and motor system are within normal limits. EXTREMITIES: No cyanosis, no clubbing. Slight swelling of the right leg. CURRENT MEDICATIONS: Include as follows: Glimepiride 2 mg p.o. a.c.b., aspirin 81 mg daily, Crestor 10 mg at bedtime, Eliquis 5 mg p.o. b.i.d., Januvia 25 mg p.o. daily, Novolin R for sliding scale, IV fluids half-normal saline at 100 mL/hour, Solu-Medrol 40 mg IV every 12 hours, and metoprolol 100 mg p.o. daily. LABORATORY DATA: Include as follows; hepatitis A IgM antibodies negative, hepatitis B surface antigen negative, hepatitis B core antibodies negative, hep C antibodies negative, ANCA is negative. C3 and C4 is normal. WBC 6.9, hemoglobin 12.8, hematocrit 35.9, platelets 278. Sodium 145, potassium 4.2, chloride 109, CO2 of 23, BUN 19, creatinine 3.1, glucose 179, calcium 8.8. Urine for eosinophils are positive. ASSESSMENT AND PLAN: In summary, Mr. Solorio is a 62-year-old elderly male with hypertension, diabetes, coronary artery disease, status post stents, cerebrovascular accident, right lower extremity deep venous thrombosis, status post thrombolysis, status post inferior vena cava filter, status post CT angiogram with acute renal failure. 1. Nonoliguric acute renal failure, most likely secondary to acute tubular necrosis, cannot rule out acute interstitial nephritis. Plan is to continue IV Solu-Medrol 40 mg IV every 12 hours, continue to monitor BMP daily, continue IV fluids half normal saline at 100 mL/hour. 2. Hypertension, blood pressure stable. 3. Deep venous thrombosis, status post thrombolysis and inferior vena cava filter placement, continue Eliquis as per Dr. Ramos Willingham. Case discussed with Dr. Ramos Willingham this morning. Thank you for allowing me to participate in your patient's care and also discussed with the patient's at bedside in rounds. Bradley Osei MD
[2017-11-09] MEDS: Sodium Chloride 0.45% 1,000 ML IV SCH ×3 (04:38→08:43)
[2017-11-09 08:19] LABS: BASO % 0.2 % (0.0-2.0); HEMOGLOBIN 11.7 g/dL (12.0-18.0); LYMPH # 1.2 K/uL (1.0-4.3); LYMPH % 11.9 % (20.0-40.0); MEAN CELL VOLUME 79.5 fL (80.0-94.0); MEAN CORPUSCULAR HEMOGLOBIN 27.8 pg (27.0-31.0); MEAN PLATELET VOLUME 9.1 fL (7.2-11.7); MONO # 0.3 K/uL (0.0-0.8); MONO % 3.3 % (0.0-10.0); NEUT # 8.6 K/uL (1.8-7.0); NEUT % 84.6 % (50.0-75.0); RBC 4.21 Mil/uL (4.40-5.90); RED CELL DISTRIBUTION WIDTH 13.3 % (11.5-14.5); WHITE BLOOD COUNT 10.2 K/uL (4.8-10.8)
[2017-11-09 08:34] LABS: CALCIUM 8.3 mg/dl (8.6-10.4)
[2017-11-09 08:52] VITALS: BP 155/85; PULSE 76; TEMP 97.4; O2SAT 98
[2017-11-09] MEDS: (Novolin R) Insulin Human Regular 100 units/ml vial SC SCH ×2 (08:56→13:02)
[2017-11-09] MEDS: MethylPREDNISolone 40 mg Vial IV SCH (10:36)
[2017-11-09] MEDS: Metoprolol Succinate 100 mg XL Tab PO SCH (10:38)
--- NOTE | 2017-11-09 11:15 | CP.PCM.PN ---
Subjective - Date & Time of Evaluation Date of Evaluation: 11/09/17 Time of Evaluation: 11:13 - Subjective Subjective: pt is seen and examined, follow up consult is dictated #[id number] pt can be discharged from renal stand point, f/u in the office in 2 weeks pt can take tapering dose of steriods, pred 40 mg qd x3 dyas, 20 mg qd x 3 days , 10 mg qd x 3 days, 5 mg qd x 3 days and stop bmp 2 days prir to office visit Objective - Vital Signs/Intake and Output Vital Signs (last 24 hours): Temp Pulse Resp BP Pulse Ox 97.4 F L 76 20 155/85 H 98 11/09/17 08:50 11/09/17 08:50 11/09/17 08:50 11/09/17 08:50 11/09/17 08:50 Intake and Output: 11/09/17 11/09/17 06:59 18:59 Intake Total 2100 Output Total 3750 Balance -1650 - Medications Medications: Current Medications Apixaban (Eliquis) 5 mg PO BID [facility] Last Admin: 11/09/17 10:38 Dose: 5 mg Aspirin (Aspirin Chewable) 81 mg PO DAILY [facility] Last Admin: 11/09/17 10:38 Dose: 81 mg Glimepiride (Amaryl) 2 mg PO ACB [facility] Last Admin: 11/09/17 08:55 Dose: 2 mg Insulin Human Regular (Novolin R) 0 unit SC ACHS [facility] PRN Reason: Protocol Last Admin: 11/09/17 08:56 Dose: 2 unit Methylprednisolone (Solu-Medrol) 40 mg IV Q12 [facility] Last Admin: 11/09/17 10:36 Dose: 40 mg Metoprolol Succinate (Toprol Xl) 100 mg PO DAILY [facility] Last Admin: 11/09/17 10:38 Dose: 100 mg Rosuvastatin Calcium (Crestor) 10 mg PO HS [facility] Last Admin: 11/08/17 21:50 Dose: 10 mg Sitagliptin Phosphate (Januvia) 25 mg PO DAILY [facility] Last Admin: 11/09/17 10:38 Dose: 25 mg - Labs Labs: 11/09/17 08:12 11/09/17 08:12 PT 14.3 SECONDS (9.7-12.2) H 11/01/17 07:27 INR 1.3 11/01/17 07:27 APTT 96 SECONDS (21-34) H 11/02/17 06:28
--- NOTE | 2017-11-09 12:12 | CP.PCM.PN ---
Subjective - Date & Time of Evaluation Date of Evaluation: 11/09/17 Time of Evaluation: 12:12 - Subjective Subjective: PATIENT IS ADMITTED FOR RIGHT LEG SWELLING/ SUSPECT DVT AAOX3 / NO SIGN OF DISTRESS NOTED Objective - Vital Signs/Intake and Output Vital Signs (last 24 hours): Temp Pulse Resp BP Pulse Ox 97.4 F L 76 20 155/85 H 98 11/09/17 08:50 11/09/17 08:50 11/09/17 08:50 11/09/17 08:50 11/09/17 08:50 Intake and Output: 11/09/17 11/09/17 06:59 18:59 Intake Total 2100 Output Total 3750 Balance -1650 - Medications Medications: Current Medications Apixaban (Eliquis) 5 mg PO BID [facility] Last Admin: 11/09/17 10:38 Dose: 5 mg Aspirin (Aspirin Chewable) 81 mg PO DAILY [facility] Last Admin: 11/09/17 10:38 Dose: 81 mg Glimepiride (Amaryl) 2 mg PO ACB [facility] Last Admin: 11/09/17 08:55 Dose: 2 mg Insulin Human Regular (Novolin R) 0 unit SC [facility] PRN Reason: Protocol Last Admin: 11/09/17 08:56 Dose: 2 unit Methylprednisolone (Solu-Medrol) 40 mg IV Q12 [facility] Last Admin: 11/09/17 10:36 Dose: 40 mg Metoprolol Succinate (Toprol Xl) 100 mg PO DAILY [facility] Last Admin: 11/09/17 10:38 Dose: 100 mg Rosuvastatin Calcium (Crestor) 10 mg PO HS [facility] Last Admin: 11/08/17 21:50 Dose: 10 mg Sitagliptin Phosphate (Januvia) 25 mg PO DAILY [facility] Last Admin: 11/09/17 10:38 Dose: 25 mg - Labs Labs: 11/09/17 08:12 11/09/17 08:12 PT 14.3 SECONDS (9.7-12.2) H 11/01/17 07:27 INR 1.3 11/01/17 07:27 APTT 96 SECONDS (21-34) H 11/02/17 06:28 Assessment and Plan - Assessment and Plan (Free Text) Assessment: PATIENT SEEN AND EXAMNIED AT THE BEDSIDE julissa.cr stable at 3.1.started on steroids LUNDG SOUND CLEAR GIANCARLO DISCUSS WITH DR TYSON AND DR OVERTON WHO AGREE AND CLEAR PATIENT FOR DC FOLLOW UP WITH DR OVERTON IN 1-2 WEEKS AT HIS OFFICE---CALL FOR APPOINTMENT FOLLOW UP WITH DR CARPENTER IN 2 WEEKS AT THIS OFFICE ---CALL FOR APPOINTMENT FOLLOW UP WITH DR HUBBARD IN 2 WEEKS AT HIS OFFICE POST LAB WORK(CBC,BMP) IN WITHIN 10 DAYS ---CALL FOR APPOINTMENT IN 2 WEEKS CONTINUE ALL HOME MEDICATION NEW PRESCRIPTION GIVEN PREDNISONE TAPER PEPCID 20 MG ONE TAB DAILY ELIQUIS 5 MG PO BID [facility] TOLERATED CALL DR OVERTON OR GO TO THE EMERGENCY ROOM IF SYMPTOMS RETURN OR WORSENING DISCUSS WITH PATIENT WHO AGREE AND VERBALIZED UNDERSTANDING
--- NOTE | 2017-11-10 03:45 | PN ---
DATE: 11/09/2017 LOCATION: The patient is located in room 653, bed B. REQUESTED BY: Ramos Willingham MD REASON FOR FOLLOWUP: Acute renal failure. HISTORY OF PRESENT ILLNESS: Mr. Solorio is a 62 years old elderly male with history of longstanding hypertension, diabetes, coronary artery disease, status post CVA who was admitted with right leg pain and difficult to ambulate and found to have DVT in the right common femoral vein and also femoral vein, and subsequently, the patient underwent thrombolysis and status post IVC filter placement, status post CT angiogram with contrast. Subsequently, the patient was found to have worsening renal function from his baseline creatinine 0.9, it went up to 3.1. The patient was also found to have urine eosinophils positive, and suspected acute interstitial nephritis versus ATN, and all the serological workup for vasculitis was negative, and started on low-dose steroids, Solu-Medrol 40 mg every 12 hours. Now, the patient is feeling better. His creatinine came down to 2.6 this morning. Denies any complaints, ambulating with physical therapist. PHYSICAL EXAMINATION: VITAL SIGNS: As follows, blood pressure 150/85, pulse 76, respirations 20, temperature 97.4, saturation 98%. Height 5 feet 9 inches, weight is 152 pounds. GENERAL: Mr. Solorio is a 62 years old elderly male, moderately built, moderately nourished, not in distress. HEENT: Pupils normal and reactive to light and accommodation. Conjunctivae pink. Sclerae anicteric. Tongue is moist. Trachea is midline. LUNGS: Symmetric on both sides. Bilateral breath sounds present. Clear to auscultation. CVS: [place] at the fifth intercostal space, midclavicular line. S1, S2 audible. No murmur or gallop. ABDOMEN: Normal in appearance, soft, tympanic. No guarding. No rigidity. No hepatosplenomegaly. GAS GOLF CART REPAIRER: The patient is alert, awake, and oriented x3. Nonfocal neuro examination. Cranial nerves II through XII grossly intact. Sensory and motor system is within normal limits. EXTREMITIES: No cyanosis, no clubbing, no edema. MEDICATIONS: His current medications include as follows, metoprolol 100 mg p.o. daily, Pepcid 20 mg p.o. daily, Eliquis 5 mg p.o. b.i.d., Januvia 100 mg p.o. daily. The patient is also on Solu-Medrol 40 mg every 12 hours. LABORATORY DATA: WBC 10.2, hemoglobin 11.7, hematocrit is 33.4, platelets 311. Sodium 139, potassium 3.9, chloride 107, CO of 22, BUN 26, creatinine 2.6, glucose 183, calcium 8.3. Total bili 0.4, AST 19, ALT 18, alkaline phosphatase 68, total protein 6, albumin is 3. IMPRESSION: In summary, Mr. Solorio is a 62 years old elderly male with hypertension, diabetes, coronary artery disease, cerebrovascular accident with right lower extremity deep venous thrombosis, status post thrombolysis, status post filter placement with high eosinophils in the bladder, and also positive urine eosinophilia with worsening renal function. Creatinine went up from 0.9 to 3.1 and started on IV Solu-Medrol on 11/07/2017. Now serum creatinine decreased to 2.6 today. 1. Nonoliguric acute renal failure, rule out acute interstitial nephritis versus acute tubular necrosis secondary to contrast induced nephropathy. 2. Hypertension. 3. Diabetes. Sugars under control. 4. Deep venous thrombosis, status post thrombolysis and IVC filter placement. Continue Eliquis. PLAN: We will start him on prednisone 40 mg daily for 3 days and 30 mg daily for 3 days, 20 mg daily for 3 days, and 10 mg daily for 3 days and 5 mg daily for 2 days and discontinue; and also Pepcid 20 mg daily. Case discussed with the nurse practitioner, Marv, in rounds and also discussed with Dr. Ramos Willingham regarding the plan. Followup CBC and BMP in 2 days before the office visit. The patient can be seen in the office in 2 weeks. Thank you for allowing me to participate in your patient's care. Bradley Osei MD
--- NOTE | 2017-11-10 08:29 | DS ---
HISTORY OF PRESENT ILLNESS: This is a 62-year-old gentleman with previous history of hypertension, diabetes, and mild TIA in the past, CAD with a previous angioplasty in the past who was brought in with pain and swelling of her right leg. HOSPITAL COURSE: The patient was found to have acute deep vein thrombosis extending from the femoral vein to the popliteal vein. The patient was given Lovenox initially. Subsequently vascular consultation with Dr. Waters was done. CAT scan was obtained, and the patient underwent thrombectomy, TPA, and subsequently, filter placement. The patient was seen by Dr. Waters. Post filter placement, the patient's creatinine has jumped from 1.3 to 1.9, and steadily raising up to 3.1. The patient was seen from day [address] Osei. Hris Manager was followed all throughout. Eosinophils were found in the blood and also in the urine. Possibility of contrast-induced nephropathy versus allergic nephritis, interstitial nephritis was considered. Eventually, the patient was placed on a small dose of Solu-Medrol with improvement. Today's creatinine is 2.6. The patient has improved now asymptomatic. At this point, the patient is stable and will be discharged. He was on Eliquis 10 mg p.o. twice a day for seven days, currently he is on 5 mg p.o. twice a day. Medications at the time of discharge includes Januvia 25 mg p.o. once a day, Janumet has been discontinued, glimepiride was increased from 2 mg p.o. once a day to 2 mg p.o. twice a day. Continue on simvastatin, at this point while the patient is on Eliquis and steroids. Prednisone 40 mg p.o. for three days followed by 30 mg for three days, 20 mg for three days, 10 mg for three days, and then 5 mg for two days, Pepcid 20 mg p.o. one a day was given. Instructions were given to follow up with Dr. Osei and I will see the patient coming Monday. FINAL DIAGNOSES: Acute deep vein thrombosis of the right leg, diabetes, acute kidney injuries, hypertension, diffuse atherosclerosis. Care of plan was explained to the patient's family on few occasions during the hospitalization including his and two daughters. Ramos Willingham MD cc: MD Jorge A (Delete if not dictated.)
--- NOTE | 2017-11-10 17:05 | CARD ---
APPROVED REPORT EXAM: Two-dimensional and M-mode echocardiogram with Doppler and color Doppler. Other Information Quality : GoodRhythm : INDICATION CVA/TIA Cardiac Disease: CAD RISK FACTORS Hypertension Diabetes 2D DIMENSIONS IVSd1.3 (0.7-1.1cm)LVDd3.5 (3.9-5.9cm) PWd1.3 (0.7-1.1cm)LVDs2.1 (2.5-4.0cm) FS (%) 40.5 %LVEF (%)72.1 (>50%) M-Mode DIMENSIONS Left Atrium (MM)3.16 (2.5-4.0cm)Aortic Root3.50 (2.2-3.7cm) Aortic Cusp Exc.1.91 (1.5-2.0cm) Aortic Valve AoV Peak Orxdnjtu607.4cm/Danitza Peak GR.19mmHg Mitral Valve MV E Xzjqegmj207.4cm/sMV A Oioeauvt62.9cm/sE/A ratio1.4 TDI E/Lateral E'0.0E/Medial E'0.0 Tricuspid Valve TR Peak [id number]/sRAP [id number] Peak Gr.24mmHg [id number] LEFT VENTRICLE The left ventricle is normal size. There is mild to moderate asymmetric left ventricular hypertrophy. Left ventricle systolic function is normal. The Ejection Fraction is >70%. There is normal LV segmental wall motion. Transmitral Doppler flow pattern is Grade II-pseudonormal filling dynamics. There is no ventricular septal defect visualized. RIGHT VENTRICLE The right ventricle is normal size. There is normal right ventricular wall thickness. The right ventricular systolic function is normal. ATRIA The left atrium is mildly dilated. The right atrium size is normal. AORTIC VALVE The aortic valve is mildly sclerotic. The aortic valve is tri-cuspid. No aortic regurgitation is present. There is no aortic valvular stenosis. There is severe subvalvular aortic stenosis. Dynamic subvalvular stenosis with gradient 120 mmHG with Valsalva, and ALETHEA MITRAL VALVE The mitral valve is normal in structure. There is no evidence of mitral valve prolapse. Mitral regurgitation is mild. TRICUSPID VALVE The tricuspid valve is normal in structure. There is trace tricuspid regurgitation. Right ventricular systolic pressure is estimated at less than 30 mmHg. There is no pulmonary hypertension. PULMONIC VALVE The pulmonary valve is normal in structure. There is no pulmonic valvular regurgitation. GREAT VESSELS The aortic root is normal in size. The ascending aorta is normal in size. The IVC is normal in size and collapses >50% with inspiration. PERICARDIAL EFFUSION There is no pericardial effusion. <Conclusion> There is mild to moderate asymmetric left ventricular hypertrophy. Left ventricle systolic function is normal. The Ejection Fraction is >70%. Transmitral Doppler flow pattern is Grade II-pseudonormal filling dynamics. There is severe subvalvular aortic stenosis. Dynamic subvalvular stenosis with gradient 120 mmHG with Valsalva, and ALETHEA Mitral regurgitation is mild.
== END 2017-11-09 14:25 | disposition home or self-care (01) | DRG 270 ==
LOC: C.ER 15:30 → C.9E 17:50 → C.3T 19:23 → C.9I 11-01 17:58 → C.5S 11-02 18:45
PROVIDERS: ADMIT Internal Medicine Cardiovascular Disease; ATTEND Internal Medicine Cardiovascular Disease
PROC: 3E04317 Introduction of Other Thrombolytic into Central Vein, Percutaneous Approach (ICD-10-PCS; principal; 2017-11-01)
PROC: 06CM3ZZ Extirpation of Matter from Right Femoral Vein, Percutaneous Approach (ICD-10-PCS; 2017-11-01)
PROC: 06H03DZ Insertion of Intraluminal Device into Inferior Vena Cava, Percutaneous Approach (ICD-10-PCS; 2017-11-01)
DX: I82.411 Acute embolism and thrombosis of right femoral vein (principal); N17.0 Acute kidney failure with tubular necrosis; I82.431 Acute embolism and thrombosis of right popliteal vein; I82.441 Acute embolism and thrombosis of right tibial vein; I82.491 Acute embolism and thrombosis of other specified deep vein of right lower extremity; N14.1 Nephropathy induced by other drugs, medicaments and biological substances; T50.8X5A Adverse effect of diagnostic agents, initial encounter; I10 Essential (primary) hypertension; I25.10 Atherosclerotic heart disease of native coronary artery without angina pectoris; E78.5 Hyperlipidemia, unspecified; E11.9 Type 2 diabetes mellitus without complications; Z86.73 Personal history of transient ischemic attack (TIA), and cerebral infarction without residual deficits; Z95.5 Presence of coronary angioplasty implant and graft; Z79.84 Long term (current) use of oral hypoglycemic drugs; Z79.01 Long term (current) use of anticoagulants; Z79.82 Long term (current) use of aspirin; Z87.11 Personal history of peptic ulcer disease

== ENCOUNTER 2018-02-14 08:27 | Emergency (ER) | payer OTHER, MEDICARE ==
[2018-02-14 08:28] VITALS: BMI 22.1
[2018-02-14 08:36] VITALS: RESP 18; O2SAT 99
--- NOTE | 2018-02-14 08:57 | C.PDOC ---
History Of Present Illness 63 year old male with a PMHx of CVA, CAD, Diabetes, HTN, HLD, recent hx of RLE DVT s/p IVCF , on Eliquis now, who was referred to [facility] by his PMD for evaluation of Left flank/lower back pain for 2 days. Patient reports pain is localized over left lower back radiating to left buttock , worse with movement. Patient denies recent trauma, injury, fever, chills, abdominal pain, bowel/ bladder incontinence, dysuria, saddle anesthesia, denies weakness, sensory or vascular deficits to B/L LEs, denies B/L calf pain. Ambulate to Ed fo evaluation , not in any apparent distress. or any other complaints at this time. Previous ED records review, 11/01/17, by ELECT IVCF VIA LEFT POPLITEAL VEIN. VENOGRAM AND MECHANICAL THROMBOLYSIS RIGHT FEMORAL VEIN VIA POPLITEAL ACCESS Time Seen by Provider: 02/14/18 08:40 Chief Complaint (Nursing): Back Pain History Per: Patient History/Exam Limitations: no limitations Onset/Duration Of Symptoms: Days Current Symptoms Are (Timing): Still Present Quality Of Discomfort: "Pain" Past Medical History Reviewed: Historical Data, Nursing Documentation, Vital Signs Vital Signs: Last Vital Signs Temp 98.6 F 02/14/18 15:00 Pulse 62 02/14/18 15:00 Resp 18 02/14/18 15:00 BP 142/85 02/14/18 15:00 Pulse Ox 99 02/14/18 15:00 - Medical History PMH: CVA, Diabetes, Deep Vein Thrombosis, HTN Surgical History: No Surg Hx - [facility] Procedures EXTIRPATION OF MATTER FROM RIGHT FEMORAL VEIN, PERC APPROACH (10/27/17) INSERTION OF INTRALUM DEV INTO INF VENA CAVA, PERC APPROACH (10/27/17) INTRODUCE OTH THROMBOLYTIC IN CENTRAL VEIN, PERC (10/27/17) Family History: States: No Known Family Hx - Social History Hx Tobacco Use: No Hx Alcohol Use: No Hx Substance Use: No - Immunization History Hx Tetanus Toxoid Vaccination: No Hx Influenza Vaccination: No Hx Pneumococcal Vaccination: No Review Of Systems Constitutional: Negative for: Fever, Chills Gastrointestinal: Negative for: Nausea, Vomiting, Abdominal Pain Genitourinary: Negative for: Dysuria, Incontinence, Hematuria Musculoskeletal: Positive for: Back Pain Skin: Negative for: Rash Physical Exam - Physical Exam Appears: Well, Non-toxic, No Acute Distress Skin: Normal Color, Warm, Dry, No Rash Head: Normacephalic Eye(s): bilateral: PERRL Nose: No Flaring, No Discharge Oral Mucosa: Moist Throat: No Erythema, No Drooling Neck: Normal ROM, Trachea Midline Cardiovascular: Rhythm Regular, No Murmur, No JVD Respiratory: No Decreased Breath Sounds, No Accessory Muscle Use, No Stridor, No Wheezing Gastrointestinal/Abdominal: Soft, No Tenderness, No Distention, No Guarding Back: No CVA Tenderness, No Vertebral Tenderness, Paraspinal Tenderness (Left lumbar exetnd down to Left gluteal area. No skin changes, no palpable deformity. ) Extremity: Normal ROM, No Pedal Edema, No Calf Tenderness (left), No Deformity, No Swelling Neurological/Psych: Oriented x3, Normal Speech, Normal Motor, Normal Sensation, Normal Reflexes ED Course And Treatment - Laboratory Results Result Diagrams: 02/14/18 09:24 02/14/18 09:24 Lab Interpretation: Abnormal (hyperglycemia) O2 Sat by Pulse Oximetry: 99 (RA) Pulse Ox Interpretation: Normal - CT Scan/US CT renal Other Rad Studies (CT/US): Radiology Report Reviewed CT/US Interpretation: Creator : Cee Beth. Dictator : Vinita Abrams MD. Ticker Wirer : Director Of Residential Services : Vinita Abrams MD. Approver2 : Report Date : 02/14/2018 10:25:13. My Comment : . Date of service: 02/14/2018. PROCEDURE: CT Abdomen and Pelvis without intravenous contrast. HISTORY: Left flank pain. COMPARISON: None. TECHNIQUE: CT scan of the abdomen and pelvis was performed without administration of intravenous contrast. Oral contrast was not administered. Coronal and sagittal reformatted images were obtained. . Radiation dose: Total exam DLP = 609.79 mGy-cm. This CT exam was performed using one or more of the following dose reduction techniques: Automated exposure control, adjustment of the mA and/or kV according to patient size, and/ or use of iterative reconstruction technique. FINDINGS: LOWER THORAX: There is a tiny calcified granuloma in the lateral segment of the right middle lobe. The visualized lung bases are clear. LIVER: Normal in size. There is a partially calcified lesion in the posterior hepatic dome. No intrahepatic ductal dilatation. GALLBLADDER AND BILE DUCTS: The gallbladder is contracted. No calcified gallstones. No biliary dilatation. PANCREAS: Normal in size. No ductal dilatation. SPLEEN: Normal in size. ADRENALS: Normal in size. No discrete nodule. KIDNEYS AND URETERS: Normal in size without nephrolithiasis. No hydronephrosis. VASCULATURE: An infrarenal IVC filter remains in place. No aortic aneurysm. BOWEL: The small bowel loops are normal in caliber. The colon is normal in size. No bowel dilatation or wall thickening. No bowel obstruction. APPENDIX: Normal appendix. PERITONEUM: No free fluid. No free air. LYMPH NODES: No enlarged lymph nodes. BLADDER: Well distended and grossly normal in appearance. REPRODUCTIVE: The prostate gland is normal in size. BONES: No acute fracture. Diffuse bone demineralization and multilevel degenerative disc disease. OTHER FINDINGS: There are bilateral small fat containing inguinal hernias. There is a small sliding hiatal hernia. IMPRESSION : No acute abdominal or pelvic abnormality. No nephrolithiasis, hydronephrosis or obstructive uropathy. Bilateral small fat containing inguinal hernias. Small sliding hiatal hernia. . Doppler US LLE Other Rad Studies (CT/US): Radiology Report Reviewed CT/US Interpretation: (-) DVT to RLE Progress Note: On re-eval, pt is afebrile, hemodynamicaly stable. Non-toxic. AMbulatory in ED with stable gait. ENT: no acute findings. Neck: Supple, (-) JVD, (-) carotid bruits B/L. CVS: (+)S1S2, reg. Lungs: CTA B/L, BS equal B/L. Abd: benign, (-) guarding, (-) rebound. Back: (-) CVA tenderness. Neurologicaly intact. B/L LEs: NO calf tenderness, no edema or erythema. Blood work review, mild hyperglycemia noted. UA (+) Glu, (-) ketones. CT renal review (-)acute findings. Case discussed with PMD ,discharge with outpt f/u recommend. Pt has clinical findings c/w Left sided lower back pain r/o lumbar radiculopathy. Pt advised and ref. to F/u with PMD in 2-3 days for re-eval. return to ED if any worsening or new changes. Disposition Counseled Patient/Family Regarding: Studies Performed, Diagnosis, Need For Followup, Rx Given - Disposition Referrals: Ramos Willingham MD [Staff Provider] - Disposition: HOME/ ROUTINE Disposition Time: 11:01 Condition: STABLE Additional Instructions: Avoid any physical activity for 1 week Take pain medication as need Follow up with PMD in 2-3 days for re-evaluation. return to ED if any worsening or new changes. 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 - Scribe Statement The provider has reviewed the documentation as recorded by the Rocioibrenetta Fletcher All medical record entries made by the Rocioibrenetta were at my direction and personally dictated by me. I have reviewed the chart and agree that the record accurately reflects my personal performance of the history, physical exam, medical decision making, and the department course for this patient. I have also personally directed, reviewed, and agree with the discharge instructions and disposition.
[2018-02-14] MEDS ORDERED: Sodium Chloride 0.9% 1,000 ML IV ONE (09:09)
[2018-02-14 09:33] LABS: BASO # 0.1 K/uL (0.0-0.2); BASO % 0.9 % (0.0-2.0); EOS # 0.6 K/uL (0.0-0.7); EOS % 6.6 % (0.0-4.0); LYMPH # 2.3 K/uL (1.0-4.3); MEAN CORPUSCULAR HGB CONC 35.2 g/dL (33.0-37.0); MEAN PLATELET VOLUME 8.6 fL (7.2-11.7); MONO # 0.6 K/uL (0.0-0.8); MONO % 6.3 % (0.0-10.0); NEUT % 62.2 % (50.0-75.0); RBC 4.65 Mil/uL (4.40-5.90); RED CELL DISTRIBUTION WIDTH 13.7 % (11.5-14.5); WHITE BLOOD COUNT 9.6 K/uL (4.8-10.8)
[2018-02-14] MEDS ORDERED: Sodium Chloride 0.9% 1,000 ML ONE (09:36)
[2018-02-14 09:43] LABS: MEAN CELL VOLUME 85.2 fL (80.0-94.0); URINE BILIRUBIN NEGATIVE (NEGATIVE); URINE BLOOD NEGATIVE (NEGATIVE); URINE CLARITY Clear (Clear); URINE COLOR Yellow (YELLOW); URINE GLUCOSE (UA) 3+ mg/dL (Normal); URINE LEUKOCYTE ESTERASE NEG Leu/uL (Negative); URINE PROTEIN NEGATIVE (NEGATIVE); URINE UROBILINOGEN NORMAL mg/dL (0.2-1.0)
[2018-02-14 09:51] LABS: BLOOD UREA NITROGEN 14 mg/dL (9-20); CALCIUM 9.6 mg/dl (8.6-10.4); GFR AFRICAN-AMERICAN > 60; GFR NON-AFRICAN AMERICAN > 60
--- NOTE | 2018-02-14 11:10 | CT ---
Date of service: 02/14/2018 PROCEDURE: CT Abdomen and Pelvis without intravenous contrast HISTORY: Left flank pain COMPARISON: None. TECHNIQUE: CT scan of the abdomen and pelvis was performed without administration of intravenous contrast. Oral contrast was not administered. Coronal and sagittal reformatted images were obtained. . Radiation dose: Total exam DLP = 609.79 mGy-cm. This CT exam was performed using one or more of the following dose reduction techniques: Automated exposure control, adjustment of the mA and/or kV according to patient size, and/or use of iterative reconstruction technique. FINDINGS: LOWER THORAX: There is a tiny calcified granuloma in the lateral segment of the right middle lobe. The visualized lung bases are clear. LIVER: Normal in size. There is a partially calcified lesion in the posterior hepatic dome. No intrahepatic ductal dilatation. GALLBLADDER AND BILE DUCTS: The gallbladder is contracted. No calcified gallstones. No biliary dilatation PANCREAS: Normal in size. No ductal dilatation. SPLEEN: Normal in size. ADRENALS: Normal in size. No discrete nodule. KIDNEYS AND URETERS: Normal in size without nephrolithiasis. No hydronephrosis. VASCULATURE: An infrarenal IVC filter remains in place. No aortic aneurysm. BOWEL: The small bowel loops are normal in caliber. The colon is normal in size. No bowel dilatation or wall thickening. No bowel obstruction. APPENDIX: Normal appendix. PERITONEUM: No free fluid. No free air. LYMPH NODES: No enlarged lymph nodes. BLADDER: Well distended and grossly normal in appearance. REPRODUCTIVE: The prostate gland is normal in size. BONES: No acute fracture. Diffuse bone demineralization and multilevel degenerative disc disease. OTHER FINDINGS: There are bilateral small fat containing inguinal hernias. There is a small sliding hiatal hernia. IMPRESSION: No acute abdominal or pelvic abnormality. No nephrolithiasis, hydronephrosis or obstructive uropathy. Bilateral small fat containing inguinal hernias. Small sliding hiatal hernia.
--- NOTE | 2018-02-14 15:08 | VASCLAB ---
Date of service: 02/14/2018 PROCEDURE: Left Lower Extremity Venous Duplex Exam. HISTORY: pain PRIORS: None. TECHNIQUE: Left common femoral, femoral, popliteal and posterior tibial, peroneal and great saphenous veins were evaluated. Flow was assessed with color Doppler, compressibility, assessment of phasic flow and augmentation response. Report prepared by CHRISTINA Ulloa, RVT FINDINGS: LEFT: 1. Common Femoral Vein: 1.1. Compressibility - Fully compressible: Thrombus - None : Flow - Phasic: Augmentation -Normal: Reflux - None. 2. Femoral Vein: 2.1. Compressibility - Fully compressible: Thrombus - None: Flow - Phasic: Augmentation -Normal: Reflux - None. 3. Popliteal Vein: 3.1. Compressibility - Fully compressible: Thrombus - None: Flow - Phasic: Augmentation -Normal: Reflux - None. 4. Posterior Tibial Vein: 4.1. Compressibility - Fully compressible: Thrombus - None: Flow - Phasic: Augmentation -Normal: Reflux - None. 5. Peroneal Vein: 5.1. Compressibility - Fully compressible: Thrombus - None: Flow - Phasic: Augmentation -Normal: Reflux - None. 6. Great Saphenous Vein: 6.1. Compressibility - Fully compressible: Thrombus - None: Flow - Phasic: Augmentation - Normal: Reflux - None. OTHER FINDINGS: IMPRESSION: No evidence of deep or superficial vein thrombosis of the left lower extremity with excellent venous flow. Normal valve function noted of the left side. Normal venous flow noted in the right common femoral vein.
[2018-02-14 15:17] VITALS: BP 142/85; PULSE 62; TEMP 98.6
== END 2018-02-14 15:00 | disposition home or self-care (01) ==
LOC: C.ER 08:27
DX: M54.16 Radiculopathy, lumbar region (principal); S39.012A Strain of muscle, fascia and tendon of lower back, initial encounter; X58.XXXA Exposure to other specified factors, initial encounter; I10 Essential (primary) hypertension; I25.10 Atherosclerotic heart disease of native coronary artery without angina pectoris; E11.9 Type 2 diabetes mellitus without complications; E78.5 Hyperlipidemia, unspecified
CPT/HCPCS: 74176; 80048; 81001; 85025; 93971; 96361; 96374; 99285; J1885; J7030

== ENCOUNTER 2018-03-08 11:08 | Emergency (ER) | payer OTHER, MEDICARE ==
[2018-03-08 11:08] VITALS: BMI 22.1
[2018-03-08 11:16] VITALS: RESP 18; TEMP 98.4; O2SAT 96
[2018-03-08] MEDS ORDERED: Sodium Chloride 0.9% 1,000 ML IV ONE (12:10)
[2018-03-08] MEDS ORDERED: Lidocaine 5% Patch TD STA (12:12)
[2018-03-08] MEDS ORDERED: Sodium Chloride 0.9% 1,000 ML ONE (12:26)
[2018-03-08] MEDS ORDERED: Lidocaine 5% Patch TD ONE (12:27)
--- NOTE | 2018-03-08 12:30 | C.PDOC ---
History Of Present Illness 63 year old male with a PMH of CVA, CAD, Diabetes, HTN, HLD, recent history of RLE DVT s/p IVCF, on Eliquis now, who was referred to [facility] [place] by his PMD Dr Ramos Willingham for evaluation of left lower back pain for several days. Patient reports pain is localized over left lower back radiating to left buttock and knee, worse with movement. Patient was seen in ED on 02/14/18 and prescribed muscle relaxant and pain meds. He ran out of medications and went to see Dr Willingham this Monday 03/05 and prescribed Percocet. The patient states the pain persists and does not see as much relief with percocet. Additionally the patient has an MRI scheduled for 03/13/18. accompanies the patient and is requesting pain medications, bloodwork and the MRI to be done today. The patient denies recent trauma, fever, abdominal pain, bowel/bladder incontinence , dysuria, saddle anesthesia, weakness, or sensory changes. Time Seen by Provider: 03/08/18 11:57 Chief Complaint (Nursing): Back Pain History Per: Patient History/Exam Limitations: no limitations Onset/Duration Of Symptoms: Days Current Symptoms Are (Timing): Still Present Quality Of Discomfort: Unable To Describe Associated Symptoms: None Exacerbating Factor(s): Nothing Recent travel outside of the [place]: No Past Medical History Reviewed: Historical Data, Nursing Documentation, Vital Signs Vital Signs: Last Vital Signs Temp 98.4 F 03/08/18 11:11 Pulse 74 03/08/18 11:11 Resp 18 03/08/18 11:11 BP 129/84 03/08/18 11:11 Pulse Ox 96 03/08/18 14:03 - Medical History PMH: CVA, Diabetes, Deep Vein Thrombosis, HTN - [facility] Procedures EXTIRPATION OF MATTER FROM RIGHT FEMORAL VEIN, PERC APPROACH (10/27/17) INSERTION OF INTRALUM DEV INTO INF VENA CAVA, PERC APPROACH (10/27/17) INTRODUCE OTH THROMBOLYTIC IN CENTRAL VEIN, PERC (10/27/17) Family History: States: Unknown Family Hx - Social History Hx Tobacco Use: No Hx Alcohol Use: No Hx Substance Use: No - Immunization History Hx Tetanus Toxoid Vaccination: No Hx Influenza Vaccination: No Hx Pneumococcal Vaccination: No Review Of Systems Constitutional: Negative for: Fever Gastrointestinal: Negative for: Abdominal Pain Genitourinary: Negative for: Dysuria, Incontinence Musculoskeletal: Positive for: Back Pain, Leg Pain Neurological: Negative for: Weakness, Numbness Physical Exam - Physical Exam Appears: Non-toxic Skin: Normal Color, Warm, Dry Head: Atraumatic, Normacephalic Eye(s): bilateral: Normal Inspection, EOMI Neck: Normal ROM Chest: Symmetrical, No Tenderness Cardiovascular: Rhythm Regular, No Murmur Respiratory: Normal Breath Sounds, No Rales, No Rhonchi, No Wheezing Gastrointestinal/Abdominal: Soft, No Tenderness Back: No Vertebral Tenderness, No Decreased ROM, No Straight Leg Raising, Other (mild paralumbar tenderness, no hip tenderness ) Extremity: Normal ROM, No Tenderness, No Calf Tenderness, No Swelling, Other ( normal internal/external rotation of bilateral hips) Pulses: Left Dorsalis Pedis: Normal, Right Dorsalis Pedis: Normal Neurological/Psych: Oriented x3, Normal Speech, Normal Motor, Normal Sensation Gait: Steady ED Course And Treatment - Laboratory Results Result Diagrams: 03/08/18 12:44 03/08/18 12:44 Lab Interpretation: No Acute Changes O2 Sat by Pulse Oximetry: 96 Pulse Ox Interpretation: Normal - Physician Consult Information Time Consulting Physician Contacted: 12:25 Physician Contacted: Ramos Willingham Outcome Of Conversation: Spoke with Dr Ramos Willingham who agrees with plan for labs and pain management, if patient feels better and appropriate for discharge , then can follow up in the office Medical Decision Making Medical Decision Making: Impression: low back pain radiating down the leg Plan: * Labs * UA * Toradol * Valium Progress: 1400 Labs reviewed with no acute findings. Patient reevaluated and reports feeling mildly better, still has not provided urine. Patient is able to stand and walk but reports he has pain when standing. The again asked if he can have MRI done. I explained to the patient and , there are no neuro deficits, weakness or sensory changes or clinical indication for MRI in emergency setting. The patient will be discharged with Rx and to follow up outpatient. Disposition Counseled Patient/Family Regarding: Studies Performed, Diagnosis, Need For Followup, Rx Given - Disposition Referrals: Ramos Willingham MD [Staff Provider] - Disposition: HOME/ ROUTINE Disposition Time: 14:01 Condition: STABLE Additional Instructions: Follow up with your primary medical doctor or clinic in 2-5 days for further evaluation. Take medications as prescribed. 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 - Scribe Statement The provider has reviewed the documentation as recorded by the Scribe Catalino Peck All medical record entries made by the Yamileth were at my direction and personally dictated by me. I have reviewed the chart and agree that the record accurately reflects my personal performance of the history, physical exam, medical decision making, and the department course for this patient. I have also personally directed, reviewed, and agree with the discharge instructions and disposition.
[2018-03-08 12:53] LABS: BASO # 0.1 K/uL (0.0-0.2); BASO % 0.7 % (0.0-2.0); EOS # 0.2 K/uL (0.0-0.7); EOS % 2.2 % (0.0-4.0); HEMOGLOBIN 14.3 g/dL (12.0-18.0); LYMPH # 1.6 K/uL (1.0-4.3); LYMPH % 20.5 % (20.0-40.0); MEAN CELL VOLUME 83.9 fL (80.0-94.0); MEAN CORPUSCULAR HEMOGLOBIN 29.5 pg (27.0-31.0); MEAN CORPUSCULAR HGB CONC 35.1 g/dL (33.0-37.0); MEAN PLATELET VOLUME 8.5 fL (7.2-11.7); MONO # 0.5 K/uL (0.0-0.8); MONO % 6.1 % (0.0-10.0); NEUT # 5.5 K/uL (1.8-7.0); NEUT % 70.5 % (50.0-75.0); NRBC % 0.1 % (0.0-2.0); RBC 4.85 Mil/uL (4.40-5.90); RED CELL DISTRIBUTION WIDTH 13.1 % (11.5-14.5); WHITE BLOOD COUNT 7.9 K/uL (4.8-10.8)
[2018-03-08 13:05] LABS: ALB/GLOB RATIO 1.5 (1.0-2.1); ALBUMIN 4.1 g/dL (3.5-5.0); ALT/SGPT 28 U/L (21-72); AST/SGOT 19 U/L (17-59); BLOOD UREA NITROGEN 13 mg/dL (9-20); CALCIUM 9.6 mg/dl (8.6-10.4); GFR NON-AFRICAN AMERICAN > 60; HDL CHOLESTEROL 40 mg/dL (30-70)
[2018-03-08 13:16] LABS: LDL CHOLESTEROL 146 mg/dL (0-129)
[2018-03-08 14:18] VITALS: BP 183/100; PULSE 68
[2018-03-08 14:19] LABS: SQUAMOUS EPITHIAL < 1 /hpf (0-5); URINE BILIRUBIN NEGATIVE (NEGATIVE); URINE BLOOD NEGATIVE (NEGATIVE); URINE CLARITY Clear (Clear); URINE COLOR Yellow (YELLOW); URINE GLUCOSE (UA) 3+ mg/dL (Normal); URINE LEUKOCYTE ESTERASE NEG Leu/uL (Negative); URINE PROTEIN NEGATIVE (NEGATIVE); URINE UROBILINOGEN NORMAL mg/dL (0.2-1.0)
== END 2018-03-08 14:17 | disposition home or self-care (01) ==
LOC: C.ER 11:08
DX: M54.16 Radiculopathy, lumbar region (principal); E11.9 Type 2 diabetes mellitus without complications; I10 Essential (primary) hypertension; E78.5 Hyperlipidemia, unspecified; I25.10 Atherosclerotic heart disease of native coronary artery without angina pectoris; Z86.718 Personal history of other venous thrombosis and embolism; Z79.01 Long term (current) use of anticoagulants; Z86.73 Personal history of transient ischemic attack (TIA), and cerebral infarction without residual deficits
CPT/HCPCS: 80053; 80061; 81001; 85025; 96361; 96374; 99284; J1885; J7030